=== PATIENT | female | born 1965 | race Caucasian/White ===

== ENCOUNTER 2019-06-29 12:22 | Outpatient (CLI) | payer BC, SELFPAY ==
--- NOTE | 2019-06-29 12:33 | XR_ITS ---
WS: [id number] WRIST RIGHT TECHNIQUE: 3 views of the right wrist CLINICAL INFORMATION: PAIN IN RIGHT WRIST COMPARISON: None. FINDINGS: Normal radiocarpal joint. Scaphoid is normal. Normal lunate. Well-corticated ulna styloid process fra cture is chronic. Distal radius and ulna are otherwise normal in appearance. No acute fractures. XR/XR wrist RT min 3V* [id number] IMPRESSION: No acute fractures
== END 2019-06-29 12:23 | disposition home or self-care (01) ==
LOC: RADWPI 12:27
PROVIDERS: Family Provider Nurse Practitioner Family; PCP Nurse Practitioner Family; Visit Provider Nurse Practitioner Family
DX: M25.531 Pain in right wrist (principal)
CPT/HCPCS: 73110

== ENCOUNTER → 2021-07-06 09:25 | Outpatient (BNVA) | payer OTHER, SELFPAY | PROVIDERS: Family Provider Nurse Practitioner Family; PCP Nurse Practitioner Family; Visit Provider Nurse Practitioner Family | DX: R53.83 Other fatigue (principal); R35.89 Other polyuria; Z13.6 Encounter for screening for cardiovascular disorders; Z13.1 Encounter for screening for diabetes mellitus; E03.9 Hypothyroidism, unspecified | CPT/HCPCS: 80053; 80061; 82607; 82728; 82746; 83550; 84439; 84443; 85025 ==

== ENCOUNTER → 2021-07-07 09:25 | Outpatient (BNVA) | payer OTHER, SELFPAY | PROVIDERS: Family Provider Nurse Practitioner Family; PCP Nurse Practitioner Family; Visit Provider Nurse Practitioner Family | DX: R35.89 Other polyuria (principal); R73.9 Hyperglycemia, unspecified; R53.83 Other fatigue; Z13.6 Encounter for screening for cardiovascular disorders; Z13.1 Encounter for screening for diabetes mellitus | CPT/HCPCS: 83036 ==

== ENCOUNTER 2021-12-27 04:30 | Observation (INO) | payer SELFPAY ==
[2021-12-27] VITALS (53 sets, daily range): BP systolic 154–191; BP diastolic 73–99; PULSE 76–148; RESP 15–39; TEMP 36.4–36.9; O2SAT 90–98; BMI 42.0
--- NOTE | 2021-12-27 04:38 | XRR_ITS ---
PROCEDURE INFORMATION: Exam: XR Chest Exam date and time: 12/27/2021 4:49 AM Age: 56 years old Clinical indication: Cough and shortness of breath; Patient HX: C/O cough with SOB. TECHNIQUE: Imaging protocol: Radiologic exam of the chest. Views: 1 view. COMPARISON: No relevant prior studies available. FINDINGS: Lungs: Interstitial prominence with mild emphysematous changes and probable bibasilar pulmonary scarring. Pleural spaces: No pneumothorax. No pleural effusion. Heart/Mediastinum: The cardiomediastinal silhouette is within normal limits. Bones/joints: Unremarkable. XR/XR chest 1V portable [id number] IMPRESSION: Interstitial prominence with mild emphysematous changes and probable bibasilar pulmonary scarring. However, difficult to exclude bibasilar pneumonia.
--- NOTE | 2021-12-27 04:39 | ED_ITS ---
Documented by User: Angel Gillespie MD 12/27/21 04:51 HPI - SOB/Dyspnea General: Chief Complaint: Shortness of Breath/Dyspnea Stated Complaint: SOB Time Seen by Provider: 12/27/21 04:31 Source: patient Mode of arrival: ambulatory Limitations: no limitations History of Present Illness: HPI Narrative: 56-year-old female has a history of COPD she is a former smoker states that she has had a cough since and increasing shortness of breath especially tonight. She is tachypneic here pulse ox was in the 80s on room air she is requiring 3 L here she has never had to wear oxygen before she states she denies any sick contacts denies any chest pain denies any fevers states her cough is been nonproductive. Associated symptoms: Deny abdominal pain, chest pain, fever(s), nausea or vomiting Review of Systems Const: Denies: fever(s), chills, body aches or change in appetite Eyes: Denies: blurry vision or eye discomfort ENMT: Denies: throat pain or dental pain Card: Denies: chest pain Resp: Reports: dyspnea, non-productive cough and wheezing GI: Denies: abdominal pain, nausea, vomiting or diarrhea : Denies: dysuria Musc: Denies: neck pain or back pain Skin/Breast: Denies: rash Neuro: Denies: headache(s) Psych: Denies: depression Hank/Lymph: Denies: easy bruising All/Imm: Denies: urticaria PFSH ED PFSH: Medical History COPD (chronic obstructive pulmonary disease) Surgical History History of appendectomy History of carpal tunnel surgery Family History Father Diabetes Grandfather Diabetes Mother Chronic kidney disease (CKD), Onset Age: 65 Sister , 56 Cancer Dementia, Onset Age: 70 Social History Smoking and tobacco status: former smoker Alcohol intake: never Household members: spouse Physical Exam Const: COMMON NORMALS: patient oriented x3 GENERAL APPEARANCE: in distress HENMT: COMMON NORMALS: normocephalic and atraumatic HEAD & SCALP: normocephalic and atraumatic Eye: COMMON NORMALS: Equal, round and reactive pupils present and EOMs intact bilaterally PUPIL: Yes Equal, round and reactive pupils present Neck/C-Spine: COMMON NORMALS: full ROM and supple Chest: COMMONS NORMALS: normal inspection of the chest and normal palpation of entire chest wall Resp: EFFORT & INSPECTION: Yes tachypneic, Yes respiratory distress and Yes audible wheezes Cardio: COMMON NORMALS: No murmurs present (Cardio) RATE: tachycardic RHYTHM: abnormal rhythm irregularly irregular GI: COMMON NORMALS: Normal to inspection, nondistended, normoactive bowel sounds present, Soft to palpation, non-tender and no masses PALPATION: Yes Soft to palpation Extremity: COMMON NORMALS: normal to inspection and full ROM Neuro: COMMON NORMALS: patient oriented x3, moves all extremities and no focal motor deficits Psych: COMMON NORMALS: mental status grossly normal, Normal thought process present and cooperative THOUGHT PROCESS: Normal thought process present Skin: COMMON NORMALS: no rashes or lesions noted and no wounds GENERAL SKIN EXAM: no rashes or lesions noted Course Vital Signs: Vital signs: Vital Signs Temperature 98.5 F 12/27/21 04:31 Pulse Rate 85 12/27/21 06:00 Respiratory Rate 20 H 12/27/21 06:00 Blood Pressure 159/76 12/27/21 06:00 Pulse Oximetry 94 12/27/21 06:00 Oxygen Delivery Me thod 12/27/21 06:00 Oxygen Flow Rate 2 12/27/21 06:00 MDM - SOB/Dyspnea Lab Data : 12/27/21 04:45 12/27/21 04:45 Labs/Radiology: Radiology Impressions Chest X-Ray 12/27/21 04:38 IMPRESSION: Interstitial prominence with mild emphysematous changes and probable bibasilar pulmonary scarring. However, difficult to exclude bibasilar pneumonia. Laboratory Results WBC 13.6 10^3/uL (4.0-10.0) H 12/27/21 04:45 RBC 4.38 10^6/uL (4.1-5.3) 12/27/21 04:45 Hgb 13.3 g/dL (11.5-15.3) 12/27/21 04:45 Hct 41.2 % (37.0-47.0) 12/27/21 04:45 MCV 94.1 fl (81-99) 12/27/21 04:45 MCH 30.4 pg (28.0-34.0) 12/27/21 04:45 MCHC 32.3 g/dL (30.0-36.0) 12/27/21 04:45 RDW 13.1 % (12.1-15.1) 12/27/21 04:45 Plt Count 363 10^3/cmm (130-400) 12/27/21 04:45 MPV 10.1 fL (7.4-10.4) 12/27/21 04:45 Neut % (Auto) 64.5 % 12/27/21 04:45 Lymph % (Auto) 22.4 % 12/27/21 04:45 Swain % (Auto) 7.5 % 12/27/21 04:45 Eos % (Auto) 4.5 % 12/27/21 04:45 Baso % (Auto) 0.7 % 12/27/21 04:45 Neut # (Auto) 8.77 10^3/uL (1.8-7.7) H 12/27/21 04:45 Lymph # (Auto) 3.0 10^3/uL (0.8-4.8) 12/27/21 04:45 Swain # (Auto) 1.0 10^3/uL (0.2-0.9) H 12/27/21 04:45 Eos # (Auto) 0.6 10^3/uL (0.0-0.8) 12/27/21 04:45 Baso # (Auto) 0.1 10^3/uL (0.0-0.1) 12/27/21 04:45 Nucleated RBC % (auto) 0 % 12/27/21 04:45 Nucleated RBCs # 0.0 /100WBC 12/27/21 04:45 Sodium 138 mmol/L (136-145) 12/27/21 04:45 Potassium 3.6 mmol/L (3.5-5.1) 12/27/21 04:45 Chloride 104 mmol/L (98-107) 12/27/21 04:45 Carbon Dioxide 23 mmol/L (22-29) 12/27/21 04:45 Anion Gap 14.6 (5-19) 12/27/21 04:45 BUN 11 mg/dL (6-20) 12/27/21 04:45 Creatinine 0.6 mg/dL (0.5-0.9) 12/27/21 04:45 GFR Calculation 103.8 mL/min (90-130) 12/27/21 04:45 Glucose 225 mg/dL (65-115) H 12/27/21 04:45 Calculated Osmolality 292 mOsm/kg (285-295) 12/27/21 04:45 Calcium 9.0 mg/dL (8.5-10.5) 12/27/21 04:45 Total Bilirubin 0.4 mg/dL (0.15-1.2) 12/27/21 04:45 AST 43 U/L (0-32) H 12/27/21 04:45 ALT 43 U/L (0-33) H 12/27/21 04:45 Alkaline Phosphatase 108 U/L (35-105) H 12/27/21 04:45 Troponin T Baseline 23 ng/L (0-10) H 12/27/21 04:53 Troponin T 120 Minute 26.61 ng/L (0-10) H 12/27/21 06:41 Delta Troponin T 3.61 ABS# (0-10) 12/27/21 06:41 NT-Pro-B Natriuret Pep 955 pg/mL (0-125) H 12/27/21 04:45 Total Protein 6.8 g/dL (6.6-8.7) 12/27/21 04:45 Albumin 4.2 g/dL (3.5-5.2) 12/27/21 04:45 Globulin 2.6 g/dL (1.3-4.6) 12/27/21 04:45 Coronavirus 229E (PCR) Not detected (NOT DETECT) 12/27/21 04:41 SARS-CoV-2 (PCR) Not detected (NOT DETECT) 12/27/21 04:41 EKG Data EKG 1: I personally reviewed and interpreted this EKG as follows: EKG Interpretation Date: 12/27/21 EKG interpretation time: 04:48 Interpretation: afib with rvr hr [address] or t wave abnormalities qrs 96 qtc 386 Discharge Plan Discharge Patient Disposition: Placed in Observation Clinical Impression: Community acquired pneumonia, Acute exacerbation of chronic obstructive airways disease Condition: Stable Prescriptions: No Action ipratropium-albuterol 0.5 mg-3 mg(2.5 mg base)/3 mL solution for nebulization 3 ml inhalation QID PRN albuterol 90 mcg/actuation aerosol inhalation citalopram [Celexa] 20 mg tablet 20 mg PO DAILY Qty: 30 0RF Rx Instructions: 1/2 tab daily for 1 week then increase to full tablet. Advair HFA 230-21 mcg/actuation HFA aerosol inhaler 2 puff inhalation BID Qty: 12 3RF Rx Instructions: 340 B if unaffordable. glimepiride 1 mg tablet 1 mg PO DAILY Qty: 30 0RF rosuvastatin 10 mg tablet 10 mg PO DAILY Qty: 90 3RF blood-glucose meter [[employer] Shongal[employer]] Kit 1 ea miscellaneous DAILY Qty: 1 0RF Rx Instructions: [employer] Glucometer Kit and supplies for use. Coding Level of Care Code ED Vp Talent Management for Chg Fwd Exam Comprehensive Documented by User: Jd Coles DO 12/27/21 07:34 HPI - SOB/Dyspnea General: Chief Complaint: Shortness of Breath/Dyspnea Stated Complaint: SOB Time Seen by Provider: 12/27/21 04:31 [facility] ED PFSH: Medical History COPD (chronic obstructive pulmonary disease) Surgical History History of appendectomy History of carpal tunnel surgery Family History Father Diabetes Grandfather Diabetes Mother Chronic kidney disease (CKD), Onset Age: 65 Sister , 56 Cancer Dementia, Onset Age: 70 Social History Smoking and tobacco status: former smoker Alcohol intake: never Household members: spouse Course Vital Signs: Vital signs: Vital Signs Temperature 98.5 F 12/27/21 04:31 Pulse Rate 85 12/27/21 06:00 Respiratory Rate 20 H 12/27/21 06:00 Blood Pressure 159/76 12/27/21 06:00 Pulse Oximetry 94 12/27/21 06:00 Oxygen Delivery Me thod 12/27/21 06:00 Oxygen Flow Rate 2 12/27/21 06:00 MDM - SOB/Dyspnea Medical Decision Making Care assumed at change of shift. Patient does have what appears to be bibasilar pneumonia and exacerbation of her COPD. She had a slight positive shift in her troponin however it was below criteria for intermediate risk by just a few tenths of a point. At 2 L by nasal cannula she is around 90 to 92%. She was tachycardic and hypoxic when she first came in we will increase her to 3 she is holding at 94% and is no longer tachycardic. There is also slight elevation in her liver enzymes she may have some underlying heart failure to although there is no established diagnosis there is no previous echocardiogram and will likely need to be further evaluated on the inpatient side. At this point given her elevated white count hypoxia and shortness of breath we will treat her for pneumonia on an inpatient basis. Discussed with Dr. Hartley will make her observation. Differential Diagnosis Likely acute exacerbation of chronic obstructive airways disease, congestive heart failure and community acquired pneumonia Medical Records I reviewed the patient's medical records. Lab Data I reviewed the patient's lab results. : 12/27/21 04:45 12/27/21 04:45 Labs/Radiology: Radiology Impressions Chest X-Ray 12/27/21 04:38 IMPRESSION: Interstitial prominence with mild emphysematous changes and probable bibasilar pulmonary scarring. However, difficult to exclude bibasilar pneumonia. Laboratory Results WBC 13.6 10^3/uL (4.0-10.0) H 12/27/21 04:45 RBC 4.38 10^6/uL (4.1-5.3) 12/27/21 04:45 Hgb 13.3 g/dL (11.5-15.3) 12/27/21 04:45 Hct 41.2 % (37.0-47.0) 12/27/21 04:45 MCV 94.1 fl (81-99) 12/27/21 04:45 MCH 30.4 pg (28.0-34.0) 12/27/21 04:45 MCHC 32.3 g/dL (30.0-36.0) 12/27/21 04:45 RDW 13.1 % (12.1-15.1) 12/27/21 04:45 Plt Count 363 10^3/cmm (130-400) 12/27/21 04:45 MPV 10.1 fL (7.4-10.4) 12/27/21 04:45 Neut % (Auto) 64.5 % 12/27/21 04:45 Lymph % (Auto) 22.4 % 12/27/21 04:45 Swain % (Auto) 7.5 % 12/27/21 04:45 Eos % (Auto) 4.5 % 12/27/21 04:45 Baso % (Auto) 0.7 % 12/27/21 04:45 Neut # (Auto) 8.77 10^3/uL (1.8-7.7) H 12/27/21 04:45 Lymph # (Auto) 3.0 10^3/uL (0.8-4.8) 12/27/21 04:45 Swain # (Auto) 1.0 10^3/uL (0.2-0.9) H 12/27/21 04:45 Eos # (Auto) 0.6 10^3/uL (0.0-0.8) 12/27/21 04:45 Baso # (Auto) 0.1 10^3/uL (0.0-0.1) 12/27/21 04:45 Nucleated RBC % (auto) 0 % 12/27/21 04:45 Nucleated RBCs # 0.0 /100WBC 12/27/21 04:45 Sodium 138 mmol/L (136-145) 12/27/21 04:45 Potassium 3.6 mmol/L (3.5-5.1) 12/27/21 04:45 Chloride 104 mmol/L (98-107) 12/27/21 04:45 Carbon Dioxide 23 mmol/L (22-29) 12/27/21 04:45 Anion Gap 14.6 (5-19) 12/27/21 04:45 BUN 11 mg/dL (6-20) 12/27/21 04:45 Creatinine 0.6 mg/dL (0.5-0.9) 12/27/21 04:45 GFR Calculation 103.8 mL/min (90-130) 12/27/21 04:45 Glucose 225 mg/dL (65-115) H 12/27/21 04:45 Calculated Osmolality 292 mOsm/kg (285-295) 12/27/21 04:45 Calcium 9.0 mg/dL (8.5-10.5) 12/27/21 04:45 Total Bilirubin 0.4 mg/dL (0.15-1.2) 12/27/21 04:45 AST 43 U/L (0-32) H 12/27/21 04:45 ALT 43 U/L (0-33) H 12/27/21 04:45 Alkaline Phosphatase 108 U/L (35-105) H 12/27/21 04:45 Troponin T Baseline 23 ng/L (0-10) H 12/27/21 04:53 Troponin T 120 Minute 26.61 ng/L (0-10) H 12/27/21 06:41 Delta Troponin T 3.61 ABS# (0-10) 12/27/21 06:41 NT-Pro-B Natriuret Pep 955 pg/mL (0-125) H 12/27/21 04:45 Total Protein 6.8 g/dL (6.6-8.7) 12/27/21 04:45 Albumin 4.2 g/dL (3.5-5.2) 12/27/21 04:45 Globulin 2.6 g/dL (1.3-4.6) 12/27/21 04:45 Coronavirus 229E (PCR) Not detected (NOT DETECT) 12/27/21 04:41 SARS-CoV-2 (PCR) Not detected (NOT DETECT) 12/27/21 04:41 Discharge Plan Discharge Patient Disposition: Placed in Observation Clinical Impression: Community acquired pneumonia, Acute exacerbation of chronic obstructive airways disease Condition: Stable Prescriptions: No Action ipratropium-albuterol 0.5 mg-3 mg(2.5 mg base)/3 mL solution for nebulization 3 ml inhalation QID PRN albuterol 90 mcg/actuation aerosol inhalation citalopram [Celexa] 20 mg tablet 20 mg PO DAILY Qty: 30 0RF Rx Instructions: 1/2 tab daily for 1 week then increase to full tablet. Advair HFA 230-21 mcg/actuation HFA aerosol inhaler 2 puff inhalation BID Qty: 12 3RF Rx Instructions: 340 B if unaffordable. glimepiride 1 mg tablet 1 mg PO DAILY Qty: 30 0RF rosuvastatin 10 mg tablet 10 mg PO DAILY Qty: 90 3RF blood-glucose meter [[employer] Shongaloo] Kit 1 ea miscellaneous DAILY Qty: 1 0RF Rx Instructions: [employer] Glucometer Kit and supplies for use. Coding Level of Care Code ED Vp Talent Management for Chg Fwd Exam Comprehensive
--- NOTE | 2021-12-27 04:48 | ECG_ITS ---
[facility] Test Date: 2021-12-27 Pat Name: Shyla Goldman Department: Room: Gender: Female Tick Inspector: : 1965 Requested By: Angel Gillespie Order Number: [id number] Vincent MD: Eric Hannon M.D. Measurements Intervals [place] Rate: 103 P: [place]: QRS: 50 QRSD: 96 T: 78 QT: 327 QTc: 429 Interpretive Statements sinus rhythm with PACs NONSPECIFIC ST & T-WAVE ABNORMALITY ABNORMAL RHYTHM ECG No previous ECG available for comparison Electronically Signed On 12-28-2021 7:04:37 CDT by Eric Hannon M.D. [email or web address] [email or web address]/[id number]
[2021-12-27 04:53] LABS: Basophils # 0.1 10^3/uL (0.0-0.1); Basophils % 0.7 %; Eosinophils # 0.6 10^3/uL (0.0-0.8); Eosinophils % 4.5 %; Hematocrit 41.2 % (37.0-47.0); Hemoglobin 13.3 g/dL (11.5-15.3); Lymphocytes % 22.4 %; Mean Corpuscular HGB Conc 32.3 g/dL (30.0-36.0); Mean Corpuscular Hemoglobin 30.4 pg (28.0-34.0); Mean Corpuscular Volume 94.1 fl (81-99); Mean Platelet Volume 10.1 fL (7.4-10.4); Monocytes % 7.5 %; Neutrophils # 8.77 10^3/uL (1.8-7.7); Neutrophils % 64.5 %; Nucleated Red Blood Cells % 0 %; Platelet Count 363 10^3/cmm (130-400); Red Blood Count 4.38 10^6/uL (4.1-5.3); Red Cell Distribution Width 13.1 % (12.1-15.1); White Blood Count 13.6 10^3/uL (4.0-10.0)
[2021-12-27] MEDS: ipratropium-albuterol 3 mL Neb INHALATION ×4 (04:56→20:19)
[2021-12-27 05:17] LABS: Troponin(5th) Baseline 23 ng/L (0-10)
[2021-12-27 05:23] LABS: Alanine Aminotransferase 43 U/L (0-33); Albumin Level 4.2 g/dL (3.5-5.2); Alkaline Phosphatase 108 U/L (35-105); Anion Gap 14.6 (5-19); Aspartate Amino Transferase 43 U/L (0-32); Blood Urea Nitrogen 11 mg/dL (6-20); Carbon Dioxide 23 mmol/L (22-29); Chloride 104 mmol/L (98-107); Globulin 2.6 g/dL (1.3-4.6); Glomerular Filtration Rate 103.8 mL/min (90-130); Glucose 225 mg/dL (65-115); NT Pro B Type Natriuretic Pept 955 pg/mL (0-125); Osmolality Calculated 292 mOsm/kg (285-295); Potassium 3.6 mmol/L (3.5-5.1); Sodium 138 mmol/L (136-145); Total Bilirubin 0.4 mg/dL (0.15-1.2); Total Protein 6.8 g/dL (6.6-8.7)
[2021-12-27 06:28] LABS: Adenovirus Not Detected (NOT DETECT); Chlamydia Pneumoniae Not Detected (NOT DETECT); Coronavirus 229E,HKU1,NL63,OC4 Not Detected (NOT DETECT); Human Metapneumovirus Not Detected (NOT DETECT); Human Rhinovirus/Enterovirus Not Detected (NOT DETECT); Influenza A Not Detected (NOT DETECT); Influenza A H1 Not Detected (NOT DETECT); Influenza A H1-2009 Not Detected (NOT DETECT); Influenza A H3 Not Detected (NOT DETECT); Influenza B Not Detected (NOT DETECT); Mycoplasma Pneumoniae Not Detected (NOT DETECT); Parainfluenza Virus Type 1 Not Detected (NOT DETECT); Parainfluenza Virus Type 2 Not Detected (NOT DETECT); Parainfluenza Virus Type 3 Not Detected (NOT DETECT); Parainfluenza Virus Type 4 Not Detected (NOT DETECT); Respiratory Syncytial Virus A Not Detected (NOT DETECT); Respiratory Syncytial Virus B Not Detected (NOT DETECT); SARS-COV-2 Not Detected (NOT DETECT)
--- NOTE | 2021-12-27 06:32 | ECG_ITS ---
[facility] Test Date: 2021-12-27 Pat Name: Shyla Goldman Department: Room: Gender: Female Outpatient Receptionist: : 1965 Requested By: Angel Gillespie Order Number: [id number] Vincent MD: Eric Hannon M.D. Measurements Intervals [place] Rate: 90 P: 60 [place]: 138 QRS: 48 QRSD: 97 T: 77 QT: 385 QTc: 472 Interpretive Statements SINUS RHYTHM WITH FREQUENT SUPRAVENTRICULAR PREMATURE COMPLEXES POSSIBLE LEFT ATRIAL ENLARGEMENT [-0.1mV P-WAVE IN V1/V2] NONSPECIFIC T-WAVE ABNORMALITY ABNORMAL RHYTHM ECG Compared to ECG 12/27/2021 04:48:41 T-wave abnormality still present Electronically Signed On 12-28-2021 7:12:07 CDT by Eric Hannon M.D. [id number]
[2021-12-27 07:07] LABS: Troponin 5 2HR 26.61 ng/L (0-10)
[2021-12-27 07:14] LABS: Troponin 5 2HR Delta 3.61 ABS# (0-10)
[2021-12-27] MEDS: levofloxacin-dextrose 5 % 750 MG/150 ML PREMIX 100 MG IV (07:27)
--- NOTE | 2021-12-27 07:34 | USCV_ITS ---
Shyla Goldman Age: 56 Gender: F : 1965 Exam Date: 12/27/2021 09:33 Ordering Phys: Chapin Reed MD Technologist: GEOFF [place] [facility] [place]ication: ELEVATED TROP BP: 159 / 76 HR: 79 Rhythm: Sinus Technical Quality: Adequate MEASUREMENTS (Male / Female) Normal Values 2D ECHO LVOT Diameter 2.0 cm LV Ejection Fraction MOD 2C 34.9 % LV Ejection Fraction 2C AL 36.7 % LA Diameter 3.5 cm LA Width 3.6 cm LA Height 4.6 cm RA Width 3.5 cm RA Height 4.3 cm Aorta at Sinotubular Diameter 2.5 cm IVC Diameter 1.5 cm M-MODE Aortic Annulus Diameter 2.9 cm LA Ao Ratio MM 1.2 MV E Point Septal Separation 1.8 cm DOPPLER AV Peak Velocity 174.3 cm/s LVOT Peak Velocity 104.0 cm/s AV Area Cont Eq vti 2.1 cm squared AV Area Cont Eq pk 1.9 cm squared MV Peak Velocity 114.0 cm/s MV Area PHT 3.7 cm squared Mitral E to A Ratio 1.1 MV E' Velocity 61.0 cm/s Mitral E to MV E' Ratio 12.3 Mitral E to LV E' Lateral Ratio 10.0 Mitral E to LV E' Septal Ratio 16.0 TR Peak Velocity 277.3 cm/s TR Peak Gradient 30.7 mmHg TR Mean Velocity 240.0 cm/s TR Mean Gradient 24.7 mmHg TR Velocity Time Integral 72.0 cm TV Peak E Velocity 45.0 cm/s Right Atrial Pressure 8.0 mmHg Pulmonary Artery Systolic Pressu 38.7 mmHg PV Peak Velocity 84.0 cm/s RV Acceleration Time 0.1 s RV Ejection Time 0.3 s RV AcT/ET 0.4 FINDINGS Left Ventricle Normal left ventricular size and wall thickness. Moderately decreased left ventricular systolic function. Left ventricular ejection fraction is estimated at 30-35 %. There seems to be global hypokinesis more pronounced in basal to mid anterior and anterolateral lorenz. Normal diastolic function. Right Ventricle Normal right ventricular size and systolic function. Right ventricular systolic pressure 33 mmHg. Right Atrium Normal right atrial size. Left Atrium Mildly increased left atrial size. Mitral Valve Mild mitral annular calcification. Structurally normal mitral valve. No mitral valve stenosis. Trace mitral valve regurgitation. Aortic Valve Structurally normal trileaflet aortic valve. No aortic valve stenosis. No aortic valve regurgitation. Tricuspid Valve Structurally normal tricuspid valve. Trace tricuspid valve regurgitation. Pulmonic Valve Structurally normal pulmonic valve. No pulmonary valve stenosis. Trace pulmonary valve regurgitation. Pericardium No pericardial effusion. Aorta Normal size aortic root and proximal ascending aorta. IVC Normal sized inferior vena cava. CONCLUSIONS 1. Normal left ventricular size and wall thickness. Moderately decreased left ventricular systolic function. Left ventricular ejection fraction is estimated at 30-35 %. There seems to be global hypokinesis more pronounced in basal to mid anterior and anterolateral lorenz. Normal diastolic function. 2. Normal right ventricular size and systolic function. 3. Pulmonary artery pressure estimated at 33 mmHg. 4. There are no prior similar studies to compare. Nargis Munguia MD (Electronically Signed) Final Date: 27 December 2021 12:41 S
[2021-12-27 08:16] LABS: Thyroid Stimulating Hormone 3.88 uIU/mL (0.27-4.20)
[2021-12-27 08:20] LABS: Hepatitis A Antibody IgM Non-Reactive (Nonreactive); Hepatitis B Core IgM Reactive (Nonreactive); Hepatitis B Surface Antigen Non-Reactive (Nonreactive); Hepatitis C Virus Antibody Reactive (Nonreactive)
--- NOTE | 2021-12-27 08:32 | PM.HP ---
Providers/Chief Complaint Admitting Physician: Chapin Reed MD Chief Complaint: SOB History of Present Illness Shyla Goldman is a 56 year old female presenting to the hospital with shortness of breath, wheezing, and nonproductive cough. Symptoms have been waxing and waning for 3 weeks but significantly worse in the last week. She has not had any fever. She denies any chest discomfort currently. She states occasionally she will get some brief sharp discomfort in her chest. No blood in her sputum. Reports she has known COPD, but not on steroid inhalation anymore she could not afford it. Frequently uses albuterol. Does not smoke anymore. Still uses some nicotine lozenges. In the emergency department she has received some IV Levaquin, nebulized treatment, and some steroids. She reports the breathing treatment helped greatly and she feels better. She also required oxygen and is currently on 2 L. Review of Systems General: Reports: 10 or more systems reviewed and unremarkable except in HPI and below Const: Denies: fever(s) or chills Eyes: Denies: change in vision ENMT: Denies: throat pain Card: Reports: chest pain Resp: Reports: dyspnea, non-productive cough and wheezing GI: Denies: abdominal pain : Denies: flank pain Musc: Denies: neck pain Skin/Breast: Denies: rash Neuro: Denies: headache(s) Psych: Denies: anxiety Endo: Denies: polyuria Hank/Lymph: Denies: easy bruising All/Imm: Denies: urticaria Medications/Allergies Home Medications Medication Instructions Recorded Confirmed Last Taken Type ipratropium 0.5 mg-albuterol 3 mg 3 ml inhalation QID PRN Shortness 03/13/21 12/27/21 Unknown History (2.5 mg base)/3 mL nebulization Of Breath soln albuterol sulfate 90 mcg/actuation 2 puff inhalation QID PRN 12/27/21 12/27/21 Unknown History aerosol inhaler Shortness Of Breath Or Wheezing cyanocobalamin (vitamin B-12) 100 100 mcg PO DAILY 12/27/21 12/27/21 12/26/21 History mcg tablet (Vitamin B-12) ergocalciferol (vitamin D2) 10 mcg 10 mcg PO DAILY 12/27/21 12/27/21 12/26/21 History (400 unit) tablet guaifenesin 600 mg tablet, 600 mg PO Q12H PRN Congestion 12/27/21 12/27/21 Unknown History extended release 12 hr (Mucinex) ibuprofen 200 mg tablet 200 mg PO Q6H PRN Pain 12/27/21 12/27/21 Unknown History vitamin C 500 mg-quercetin 250 1 cap PO DAILY 12/27/21 12/27/21 12/26/21 History mg-bioflavonoids, citrus 33 mg capsule (Quercetin Complex) zinc acetate 50 mg (zinc) capsule 50 mg PO DAILY 12/27/21 12/27/21 12/26/21 History Allergies Allergy/AdvReac Type Severity Reaction Status Date / Time No Known Allergies Allergy Verified 12/27/21 07:47 PFSH Acute PFSH: Medical History (Updated 12/27/21 @ 08:40 by Chapin Reed MD) COPD (chronic obstructive pulmonary disease) Depression Diabetes mellitus type 2 in obese Surgical History History of appendectomy History of carpal tunnel surgery Family History Father Diabetes Grandfather Diabetes Mother Chronic kidney disease (CKD), Onset Age: 65 Sister , 56 Cancer Dementia, Onset Age: 70 Social History Smoking and tobacco status: former smoker Alcohol intake: never Household members: spouse Vitals/I&O/Wt Last Vital Signs Temp 98.5 F 12/27/21 04:31 Pulse 86 12/27/21 07:32 Resp 20 H 12/27/21 06:00 BP 159/76 12/27/21 06:00 Pulse Ox 93 12/27/21 07:32 O2 Del Method 12/27/21 07:32 O2 Flow Rate 2 12/27/21 07:32 Weight last 48 hrs Weight 97.522 kg Physical Exam Narrative: General exam is a female, no distress currently HEENT: Atraumatic and normocephalic. Pupils equally round. Oropharynx clear. Neck is supple no lymphadenopathy or thyromegaly Cardiovascular regular rate and rhythm without murmur, heart sounds distant Lungs diminished breath sounds at the bases. No crackles. Few expiratory wheezes. Abdomen is soft nontender positive bowel sounds. No obvious organomegaly exam was deferred Extremities no cyanosis clubbing or edema, cap refill brisk Skin no rash Neuro no obvious focal deficits. Data : 12/27/21 04:45 12/27/21 04:45 Other Labs: EKG demonstrates slight tachycardia, occasional PAC, normal axis and nonspecific ST-T wave changes Chest x-ray demonstrates some emphysematous change, possible bibasilar pneumonia Calcium 9.0 LFTs slightly high with AST of 43, ALT of 43, alk phos of 108. Troponin baseline 23 with repeat of 26. BNP 955. TSH and hepatitis panel have been ordered. A&P Assessment and plan (1) Community acquired pneumonia: Patient presents with community-acquired pneumonia requiring oxygen, with elevated white blood cell count. No fevers been noted. Bibasilar infiltrate on x-ray. Observation Wean oxygen as tolerated Rocephin, azithromycin Sputum culture. (2) Acute exacerbation of chronic obstructive airways disease: She received IV steroids in the emergency department Prednisone 40 mg daily Pulmonary toilet every 4 hours with albuterol and Atrovent Initiate budesonide twice daily (3) Transaminitis: Check hepatitis panel (4) Elevated troponin: Elevated BNP as well but no overt signs of congestive heart failure such as crackles, increased JVP, or peripheral edema. This may be secondary to heart strain from her hypoxia and COPD exacerbation/pneumonia Check echocardiogram Consider outpatient nuclear stress testing. (5) Diabetes mellitus type 2 in obese: Sliding scale insulin will be initiated Metformin should be initiated at discharge Consistent carb diet Plan Other medical problems as outlined in past medical history Full code Lovenox for DVT prophylaxis Attestations Medical Necessity Statement*: Will need less than 2 midnight stay for evaluation and treatment of COPD exacerbation and pneumonia. Coding Level of Care Code Acute Rehab Physician for Chg Fwd Diagnoses Community acquired pneumonia J18.9 Acute exacerbation of chronic obstructive airways disease J44.1 Transaminitis R74.01 Elevated troponin R77.8 Diabetes mellitus type 2 in obese E11.69; E66.9
[2021-12-27] MEDS: perflutren protein-a microsphr 0.22 mg/mL SDV 3 mL IV (10:03)
[2021-12-27] MEDS: FUROsemide 10 mg/mL SDV 2mL 20 MG IVP (10:11)
[2021-12-27 10:29] LABS: Protein Urine Neg (Negative); Specific Gravity, Urine 1.015 (1.005-1.030); Urine Appearance Clear (CLEAR); Urine Color Yellow (Yellow); pH Urine 5 (5-7)
[2021-12-27 10:30] LABS: Bilirubin Urine Neg (Negative); Blood Urine Neg (Negative); Glucose Urine UA 4+ (Normal); Ketones Urine 1+ (Negative); Leukocyte Esterase Urine Negative (Negative); Nitrate Urine Positive (Negative); Urobilinogen Urine Norm (Negative)
[2021-12-27 10:38] LABS: Add Urine Culture? Yes; Bacteria Urine 3+ /hpf; Squamous Epithelial Cell Urine 0-4 /hpf (0-5)
--- NOTE | 2021-12-27 10:38 | ECG_ITS ---
[facility] Test Date: 2021-12-27 Pat Name: Shyla Goldman Department: Room: 254 Gender: Female Manager Of Finance: : 1965 Requested By: Angel Gillespie Order Number: [id number] Reading MD: Eric Hannon M.D. Measurements Intervals [place] Rate: 79 P: 61 AK: 143 QRS: 46 QRSD: 95 T: 66 QT: 428 QTc: 493 Interpretive Statements SINUS RHYTHM POSSIBLE LEFT ATRIAL ENLARGEMENT [-0.1mV P-WAVE IN V1/V2] NONSPECIFIC T-WAVE ABNORMALITY Compared to ECG 12/27/2021 06:32:48 No significant changes Electronically Signed On 12-28-2021 7:12:49 CDT by Eric Hannon M.D. [id number]
[2021-12-27 11:22] LABS: Troponin 5 6HR 25.35 ng/L (0-10)
[2021-12-27 11:23] LABS: Troponin 5 6HR Delta 2.35 ng/L (0-12)
[2021-12-27 13:38] LABS: Glucose Point of Care 352 mg/dL (70-110)
[2021-12-27] MEDS: budesonide 0.5 mg/2 mL Neb INHALATION ×2 (13:41→20:19)
[2021-12-27] MEDS: aspirin 325 mg EC Tablet PO (13:54)
[2021-12-27] MEDS: predniSONE 20 mg Tablet 40 MG PO (13:54)
[2021-12-27] MEDS: enoxaparin 40 mg/0.4 mL Syringe SUBCUT (13:56)
[2021-12-27] MEDS: cefTRIAXone 1,000 MG in sodium chloride 0.9% (plus) 50 ML 100 MG IV (13:58)
[2021-12-27] MEDS: azithromycin 500 MG in sodium chloride 0.9% 250 ML 250 MG IV (14:05)
[2021-12-27] MEDS: losartan 50 mg Tablet 25 MG PO (14:06)
[2021-12-27 14:15] LABS: Procalcitonin 0.04 ng/mL (0-0.5)
--- NOTE | 2021-12-27 14:18 | P.CONIM_ITS ---
Providers/Reason For Consult Consulting Physician/Specialty*: Dr. Munguia, cardiology Reason for Consult*: Newly diagnosed cardiomyopathy Attending Physician: Chapin Reed MD History of Present Illness History of Present Illness Shyla Goldman is a 56 year old female with PMHx of COPD, former smoker and whiskey drinker (quit in 2018), type 2 DM and obesity (BMI-42) presented with shortness of breath, wheezing, and productive cough with whitish to yellowish phlegm for past 2-3 weeks.? No fever, blood in her sputum.? She got some IV Levaquin, breathing treatment and steroids.?She had some chest discomfort after stress that did not last long. She had echocardiogram that showed LVEF 30-35% with global hypokinesis more pronounced in basal to mid anterior and anterolateral lorenz. She complains of SOB but denies any CP. Review of Systems Const: Denies: fatigue Eyes: Denies: change in vision ENMT: Denies: throat pain, bleeding gums or epistaxis Card: Denies: chest pain, palpitations, irregular heart rhythm, edema, swelling of feet/ankles, lightheadedness, syncope, pre-syncope, dyspnea on exertion or orthopnea Resp: Reports: dyspnea and productive cough; Denies: non-productive cough GI: Denies: abdominal pain, nausea, vomiting, hematemesis, diarrhea, constipation or hematochezia : Denies: dysuria or hematuria Musc: Denies: back pain, extremity swelling, joint pain or muscle weakness Skin/Breast: Denies: rash Neuro: Denies: dizziness Psych: Denies: anxiety or depression Endo: Denies: tired all the time Hank/Lymph: Denies: easy bruising or easy bleeding Medications/Allergies Home Medications Medication Instructions Recorded Confirmed Last Taken Type ipratropium 0.5 mg-albuterol 3 mg 3 ml inhalation QID PRN Shortness 03/13/21 12/27/21 Unknown History (2.5 mg base)/3 mL nebulization Of Breath soln albuterol sulfate 90 mcg/actuation 2 puff inhalation QID PRN 12/27/21 12/27/21 Unknown History aerosol inhaler Shortness Of Breath Or Wheezing cyanocobalamin (vitamin B-12) 100 100 mcg PO DAILY 12/27/21 12/27/21 12/26/21 History mcg tablet (Vitamin B-12) ergocalciferol (vitamin D2) 10 mcg 10 mcg PO DAILY 12/27/21 12/27/21 12/26/21 History (400 unit) tablet guaifenesin 600 mg tablet, 600 mg PO Q12H PRN Congestion 12/27/21 12/27/21 Unknown History extended release 12 hr (Mucinex) ibuprofen 200 mg tablet 200 mg PO Q6H PRN Pain 12/27/21 12/27/21 Unknown History vitamin C 500 mg-quercetin 250 1 cap PO DAILY 12/27/21 12/27/21 12/26/21 History mg-bioflavonoids, citrus 33 mg capsule (Quercetin Complex) zinc acetate 50 mg (zinc) capsule 50 mg PO DAILY 12/27/21 12/27/21 12/26/21 History Allergies Allergy/AdvReac Type Severity Reaction Status Date / Time No Known Allergies Allergy Verified 12/27/21 07:47 Current Medications Generic Name Dose Route Start Last Admin Trade Name Freq PRN Reason Stop Dose Admin Albuterol/Ipratropium 3 ml 12/27/21 12:32 12/27/21 13:41 Ipratropium-Albuterol 3 Ml Neb INHALATION 3 ml Q4H NEETU Administration Aspirin 325 mg 12/27/21 13:25 12/27/21 13:54 Aspirin 325 Mg Ec Tablet PO 325 mg DAILY NEETU Administration Budesonide 0.5 mg 12/27/21 12:45 12/27/21 13:41 Budesonide 0.5 Mg/2 Ml Neb INHALATION 0.5 mg BID.RESPIRATORY NEETU Administration Enoxaparin Sodium 40 mg 12/27/21 13:00 12/27/21 13:56 Enoxaparin 40 Mg/0.4 Ml Syringe SUBCUT 40 mg Q24H NEETU Administration Azithromycin 500 mg/ Sodium 250 mls @ 250 mls/hr 12/27/21 13:00 12/27/21 14:05 Chloride IV 250 mls/hr Q24H NEETU Administration Protocol Ceftriaxone Sodium 1,000 mg/ 50 mls @ 100 mls/hr 12/27/21 13:00 12/27/21 13:58 Sodium Chloride IV 100 mls/hr Q24H NEETU Administration Protocol Insulin Human Lispro 0 unit 12/27/21 12:32 12/27/21 14:12 Insulin Lispro 100 Unit/1 Ml SUBCUT Not Given WM&BEDTIME NEETU Protocol Losartan Potassium 25 mg 12/27/21 13:25 12/27/21 14:06 Losartan 50 Mg Tablet PO 25 mg DAILY NEETU Administration Prednisone 40 mg 12/27/21 13:00 12/27/21 13:54 Prednisone 20 Mg Tablet PO 40 mg DAILY NEETU Administration PFSH Acute PFSH: Medical History COPD (chronic obstructive pulmonary disease) Depression Diabetes mellitus type 2 in obese Surgical History History of appendectomy History of carpal tunnel surgery Family History Father Diabetes Grandfather Diabetes Mother Chronic kidney disease (CKD), Onset Age: 65 Sister , 56 Cancer Dementia, Onset Age: 70 Social History Smoking and tobacco status: former smoker Alcohol intake: never Household members: spouse Vitals/I&O/Wt Last Vital Signs Temp 98.2 F 12/27/21 12:32 Pulse 91 12/27/21 13:51 Resp 16 12/27/21 13:51 BP 164/86 12/27/21 14:06 Pulse Ox 94 12/27/21 13:51 O2 Del Method 12/27/21 13:51 O2 Flow Rate 2 12/27/21 07:32 12/26/21 12/27/21 12/27/21 22:59 06:59 14:59 Intake Total 750 / 750 Balance 750 / 750 Weight last 48 hrs Weight 215 lb Physical Exam Narrative: GENERAL: obese woman sitting in bed in no acute distress HEENT: Extraocular movement intact. No pallor or icterus. NECK: central trachea, No JVD, No carotid bruit. CARDIOVASCULAR SYSTEM: S1-S2 regular. No S3 or S4 present. No murmur rubs or gallops. RESPIRATORY SYSTEM: Chest clear to auscultation. No wheezes rhonchi or rubs heard. No use of accessory muscles. ABDOMEN: Soft, nontender and nondistended. Normal bowel sounds present. EXTREMITIES: No cyanosis or edema. No signs of chronic venous insufficiency. CRANE CHASER: Patient is alert oriented ?3. No focal neurological deficits. SKIN: Normal turgor and temperature. PSYCH: Normal insight and judgment. Data : 12/27/21 04:45 12/27/21 04:45 Other data: TTE (12/27/21) CONCLUSIONS ?1. Normal left ventricular size and wall thickness. Moderately ?decreased left ventricular systolic function.? Left ventricular ?ejection fraction is estimated at 30-35 %.? There seems to be ?global hypokinesis more pronounced in basal to mid anterior and ?anterolateral lorenz.? Normal diastolic function. ?2. Normal right ventricular size and systolic function. ?3. Pulmonary artery pressure estimated at 33 mmHg. ?4. There are no prior similar studies to compare. A&P Assessment and plan (1) Cardiomyopathy: EKG with sinus rhythm, possible left atrial enlargement. non specific T wave abnormality. -troponins flat -started on losratan. -will need C. She is worried about costs as she has no insurance. Risks and benefits were discussed with the patients. Possible complications including risk of heart attack stroke and , coronary perforation, arrhythmia, cardiac tamponade in urgent CABG were discussed with the patient as well. -will talk to clinical social work aide tomorrow. Decision for cath later in stay/outpatient based on that. (2) Diabetes mellitus type 2 in obese: (3) Transaminitis: Hep B Core IgM Ab reactive, Hep C antibody reactive HCV RNA pending (4) COPD (chronic obstructive pulmonary disease): Qualifiers: COPD type: chronic bronchitis Chronic bronchitis type: simple Qualified Code(s): J41.0 - Simple chronic bronchitis Plan Former smoker Obesity Coding Level of Care Code Acute Marketing Professional for [facility] Fwd Diagnoses Cardiomyopathy I42.9 Diabetes mellitus type 2 in obese E11.69; E66.9 Transaminitis R74.01 COPD (chronic obstructive pulmonary disease) J41.0 COPD type: chronic bronchitis Chronic bronchitis type: simple
[2021-12-27] MEDS: ibuprofen 600 mg Tablet PO (14:43)
[2021-12-27 17:03] LABS: Glucose Point of Care 276 mg/dL (70-110)
[2021-12-27] MEDS: insulin lispro 100 unit/1 mL SUBCUT ×2 (17:45→21:47)
[2021-12-27] MEDS: atorvastatin 40 mg Tablet 20 MG PO (20:44)
[2021-12-27 21:19] LABS: Glucose Point of Care 359 mg/dL (70-110)
--- NOTE | 2021-12-27 23:31 | ECG_ITS ---
[facility] Test Date: 2021-12-27 Pat Name: Shyla Goldman Department: Room: 254 Gender: Female Mechanic: : 1965 Requested By: Ab Belle Order Number: [id number] Reading MD: Eric Hannon M.D. Measurements Intervals [place] Rate: 140 P: PA: QRS: 52 QRSD: 93 T: 61 QT: 329 QTc: 503 Interpretive Statements ATRIAL FIBRILLATION WITH RAPID VENTRICULAR RESPONSE NONSPECIFIC ST & T-WAVE ABNORMALITY ABNORMAL RHYTHM ECG Compared to ECG 12/27/2021 11:13:06 Sinus rhythm no longer present T-wave abnormality still present Electronically Signed On 12-28-2021 7:15:11 CDT by Eric Hannon M.D. [id number]
[2021-12-27] MEDS: potassium chloride ER 20 mEq Tablet PO (23:53)
[2021-12-27] MEDS: metoprolol tartrate 1 mg/1 mL SDV 5 mL 2.5 MG IVP (23:54)
[2021-12-28] VITALS (21 sets, daily range): BP systolic 110–148; BP diastolic 60–89; PULSE 66–134; RESP 12–18; TEMP 36.3–36.9; O2SAT 91–97
[2021-12-28] MEDS: ipratropium-albuterol 3 mL Neb INHALATION ×7 (00:22→23:46)
[2021-12-28 00:31] LABS: Magnesium 1.6 mg/dL (1.7-2.3)
[2021-12-28] MEDS: metoprolol tartrate 1 mg/1 mL SDV 5 mL 2.5 MG IVP (01:03)
[2021-12-28] MEDS: metoprolol tartrate 25 mg Tablet PO ×2 (01:03→08:57)
[2021-12-28] MEDS: magnesium sulfate premix 2 GM/50 ML PIGGYBACK IV (01:05)
[2021-12-28 04:31] LABS: Basophils % 0.3 %; Eosinophils % 0.1 %; Hematocrit 38.1 % (37.0-47.0); Hemoglobin 12.4 g/dL (11.5-15.3); Lymphocytes # 1.9 10^3/uL (0.8-4.8); Lymphocytes % 14.1 %; Mean Corpuscular HGB Conc 32.5 g/dL (30.0-36.0); Mean Corpuscular Hemoglobin 30.8 pg (28.0-34.0); Mean Corpuscular Volume 94.5 fl (81-99); Mean Platelet Volume 10.2 fL (7.4-10.4); Monocytes # 1.3 10^3/uL (0.2-0.9); Monocytes % 9.5 %; Neutrophils # 10.04 10^3/uL (1.8-7.7); Neutrophils % 75.5 %; Nucleated Red Blood Cells % 0 %; Platelet Count 408 10^3/cmm (130-400); Red Blood Count 4.03 10^6/uL (4.1-5.3); Red Cell Distribution Width 13.2 % (12.1-15.1); White Blood Count 13.3 10^3/uL (4.0-10.0)
[2021-12-28 04:52] LABS: Alanine Aminotransferase 29 U/L (0-33); Albumin Level 3.7 g/dL (3.5-5.2); Alkaline Phosphatase 97 U/L (35-105); Anion Gap 14.4 (5-19); Aspartate Amino Transferase 22 U/L (0-32); Blood Urea Nitrogen 14 mg/dL (6-20); Calcium 8.8 mg/dL (8.5-10.5); Carbon Dioxide 24 mmol/L (22-29); Chloride 101 mmol/L (98-107); Chol HDL Ratio 2.56 mg/dL (0.0-4.40); Cholesterol 207 mg/dL (0-200); Creatinine Clr Calc Pharmacy 133.0781; Globulin 3.1 g/dL (1.3-4.6); Glomerular Filtration Rate 128.1 mL/min (90-130); Glucose 228 mg/dL (65-115); HDL Cholesterol 81 mg/dL (60-100); LDL Cholesterol Calculated 109 mg/dL (50-129); LDL HDL Ratio 1.35 RATIO (0.00-3.22); Magnesium 2.3 mg/dL (1.7-2.3); Osmolality Calculated 288 mOsm/kg (285-295); Potassium 4.4 mmol/L (3.5-5.1); Sodium 135 mmol/L (136-145); Total Bilirubin 0.3 mg/dL (0.15-1.2); Total Protein 6.8 g/dL (6.6-8.7); Triglycerides 83 mg/dL (0-150)
[2021-12-28 06:59] LABS: Glucose Point of Care 209 mg/dL (70-110)
[2021-12-28] MEDS: budesonide 0.5 mg/2 mL Neb INHALATION ×2 (08:29→20:48)
[2021-12-28] MEDS: aspirin 325 mg EC Tablet PO (08:55)
[2021-12-28] MEDS: losartan 50 mg Tablet 25 MG PO ×2 (08:55→10:35)
[2021-12-28] MEDS: insulin lispro 100 unit/1 mL SUBCUT ×4 (08:57→20:55)
[2021-12-28] MEDS: predniSONE 20 mg Tablet 40 MG PO (08:57)
--- NOTE | 2021-12-28 09:37 | PM.PN ---
Subjective Subjective: went into atrial fibrillation last night and then converted to SR after metoprolol Medications: Reviewed: Yes Vitals/I&O/Wt Last Vital Signs Temp 97.6 F 12/28/21 07:54 Pulse 70 12/28/21 08:25 Resp 16 12/28/21 08:25 BP 138/85 12/28/21 08:55 Pulse Ox 95 12/28/21 08:25 O2 Del Method 12/28/21 08:25 O2 Flow Rate 2 12/28/21 07:45 12/27/21 12/28/21 12/28/21 22:59 06:59 14:59 Intake Total 610 / 1410 50 / 1460 Balance 610 / 1410 50 / 1460 Weight last 48 hrs Weight 215 lb Weight 215 lb Physical Exam Narrative: GENERAL: obese woman sitting in bed in no acute distress HEENT: Extraocular movement intact. No pallor or icterus. NECK: central trachea, No JVD, No carotid bruit. CARDIOVASCULAR SYSTEM: S1-S2 regular. No S3 or S4 present. No murmur rubs or gallops. RESPIRATORY SYSTEM: Chest clear to auscultation. No wheezes rhonchi or rubs heard. No use of accessory muscles. ABDOMEN: Soft, nontender and nondistended. Normal bowel sounds present. EXTREMITIES: No cyanosis or edema. No signs of chronic venous insufficiency. BISQUE WARE DIPPER: Patient is alert oriented ?3. No focal neurological deficits. SKIN: Normal turgor and temperature. PSYCH: Normal insight and judgment. Data : 12/28/21 04:25 12/28/21 04:25 A&P Assessment and plan (1) Cardiomyopathy: EKG with sinus rhythm, possible left atrial enlargement. non specific T wave abnormality. -troponins flat -started on losratan. -will need LHC. Risks and benefits were discussed with the patients. Possible complications including risk of heart attack stroke and , coronary perforation, arrhythmia, cardiac tamponade in urgent CABG were discussed with the patient as well. -Plan for cath tomorrow (2) Atrial fibrillation: [id number]= 3/9, 1 for HTN, 1 for female sex and 1 for DM-2. -continue metoprolol -start on Eliquis after LHC (3) Diabetes mellitus type 2 in obese: (4) Transaminitis: Hep B Core IgM Ab reactive, Hep B surface antigen negative; Hep C antibody reactive HCV RNA pending (5) COPD (chronic obstructive pulmonary disease): Qualifiers: COPD type: chronic bronchitis Chronic bronchitis type: simple Qualified Code(s): J41.0 - Simple chronic bronchitis Plan Former smoker Obesity Attestations Medical Necessity Statement*: needs hospital stay for cardiomyopathy Coding Level of Care Code Acute Mold Repair Technician for [facility] Fwd Diagnoses Cardiomyopathy I42.9 Atrial fibrillation I48.91 Diabetes mellitus type 2 in obese E11.69; E66.9 Transaminitis R74.01 COPD (chronic obstructive pulmonary disease) J41.0 COPD type: chronic bronchitis Chronic bronchitis type: simple
--- NOTE | 2021-12-28 10:32 | PC.CHAP ---
Pastoral Care Encounter/Spiritual Assessment Type of Contact [] Declined wood room hand visit [] Patient/Family/Request visit [] Outpatient visit [] Follow-up visit [] Physician referral [] Code/Alert [x] Routine visit [] Staff referral [] Actively dying [] Patient sleeping [] Family support [] [] Out of room [] Palliative care [] [x] Receiving care in room [] Pre-surgical visit [] Trauma [] Long length of stay [] ICU visit [] Other: Relational/Emotional Strength [x] Patient feels connected with others/family/visitors/staff [] Distress [] Loneliness/isolation [] Abandonment Spirituality of Patient [x] Person of Bianca [] Attends Religious of their Bianca [] Believes in Prayer [] Reads Bible or Mandaen materials [] There are Spiritual issues to be addressed Senior Court Office Assistant Interventions [x] Prayer [x] Active listening [x] Non-anxious presence [x] Spiritual/emotional support [] Crisis/trauma care [x] Spiritual counseling [] Bereavement support [] Provided bereavement packet [] Provided Bible/devotional materials [] Provided toy/stuffed animal, coloring book to patient or family member [] Provided Communion [] Anointing/[place] [] Salvation [x] Completed spiritual assessment [] Other: Impact on Illness or Injury [] Angry [] Fearful [] Anxious [] Often cries [] Exhaustion [] Unable to work [] Unable to attend jain [] Unable to walk/stand [] Unable to read [] Unable to drive [] Unable to eat/drink [] Unable to sleep [] Unable to be with family [] Patient intubated [] Other: Summary daeling punoma some problems breating has a good attitude hoping out come well be good going home soon Time spent with patient 10 mins
[2021-12-28 11:34] LABS: Glucose Point of Care 321 mg/dL (70-110)
[2021-12-28] MEDS: cefTRIAXone 1,000 MG in sodium chloride 0.9% (plus) 50 ML 100 MG IV (12:31)
[2021-12-28] MEDS: enoxaparin 40 mg/0.4 mL Syringe SUBCUT (12:32)
[2021-12-28] MEDS: azithromycin 500 MG in sodium chloride 0.9% 250 ML 250 MG IV (14:02)
--- NOTE | 2021-12-28 14:15 | PM.PN ---
Subjective Subjective: I visited with the patient this morning as well as multiple times this afternoon. Reports she had significant palpitations at night. Refrigeration Brazer/Solderer was notified that she was having episodes of A. fib with RVR and she received metoprolol IV and was started on p.o. metoprolol. She reported no chest pressure or discomfort. She states her breathing is much better this morning. No significant wheezing. Occasionally has a cough. Medications: Reviewed: Yes Vitals/I&O/Wt Last Vital Signs Temp 97.7 F 12/28/21 11:39 Pulse 75 12/28/21 12:47 Resp 16 12/28/21 12:35 BP 131/69 12/28/21 11:39 Pulse Ox 95 12/28/21 12:35 O2 Del Method 12/28/21 12:35 O2 Flow Rate 2 12/28/21 07:45 12/27/21 12/28/21 12/28/21 22:59 06:59 14:59 Intake Total 610 / 1410 50 / 1460 480 / 480 Balance 610 / 1410 50 / 1460 480 / 480 Weight last 48 hrs Weight 97.522 kg Weight 97.522 kg Physical Exam Narrative: General exam is a female, no distress Neck is supple no lymphadenopathy or thyromegaly Cardiovascular regular rate and rhythm without murmur, heart sounds distant Lungs diminished breath sounds at the bases. No crackles. No wheezes Abdomen is soft nontender positive bowel sounds. No obvious organomegaly Extremities no cyanosis clubbing or edema, cap refill brisk Skin no rash Data : 12/28/21 04:25 12/28/21 04:25 A&P Assessment and plan (1) Community acquired pneumonia: Patient presents with community-acquired pneumonia requiring oxygen, with elevated white blood cell count. No fevers been noted. Bibasilar infiltrate on x-ray. Continue IV antibiotic, Rocephin and azithromycin Oxygen has been weaned off (2) Acute exacerbation of chronic obstructive airways disease: She received IV steroids in the emergency department Continue prednisone 40 mg daily Pulmonary toilet every 4 hours with albuterol and Atrovent Initiate budesonide twice daily. Plan on Advair on discharge (3) Transaminitis: Check hepatitis panel (4) Elevated troponin: Elevated BNP as well but no overt signs of congestive heart failure such as crackles, increased JVP, or peripheral edema. This may be secondary to heart strain from her hypoxia and COPD exacerbation/pneumonia Echocardiogram demonstrated ejection fraction of 30 to 35%. With discovery of new cardiomyopathy, will require further follow-up. (5) Diabetes mellitus type 2 in obese: Continue sliding scale insulin Metformin should be initiated at discharge Consistent carb diet (6) Cardiomyopathy: Echocardiogram demonstrated EF of 30 to 35% ARB increased today Metoprolol added Continue aspirin Secondary to further work-up needed, changed to regular admission, appreciate cardiology consultation. Consideration of angiogram tomorrow. Statin added. LDL was 109 TSH was normal (7) Atrial fibrillation: Patient developed atrial fibrillation with rapid ventricular rate last night, resolved after IV metoprolol given Continue metoprolol orally 25 mg twice daily Plan on full anticoagulation at discharge with Eliquis or Xarelto. (8) Hypomagnesemia: Supplemented last night, normal this morning. Repeat tomorrow. Plan Other medical problems as outlined in past medical history Full code Lovenox for DVT prophylaxis Attestations Medical Necessity Statement*: Needs continued hospital stay for evaluation of new onset atrial fibrillation, new diagnosis of cardiomyopathy. Coding Level of Care Code Acute Maintainability Engineer for [facility] Diagnoses Community acquired pneumonia J18.9 Acute exacerbation of chronic obstructive airways disease J44.1 Transaminitis R74.01 Elevated troponin R77.8 Diabetes mellitus type 2 in obese E11.69; E66.9 Cardiomyopathy I42.9 Atrial fibrillation I48.91 Hypomagnesemia E83.42
[2021-12-28 16:42] LABS: Glucose Point of Care 309 mg/dL (70-110)
[2021-12-28] MEDS: metoprolol succinate ER (24 HR) 25 mg Tablet PO (17:32)
--- NOTE | 2021-12-28 19:21 | PC.NURSE ---
Report given to ENRRIQUE Garcia
[2021-12-28 20:45] LABS: Glucose Point of Care 304 mg/dL (70-110)
[2021-12-28] MEDS: atorvastatin 40 mg Tablet 20 MG PO (20:55)
[2021-12-29] VITALS (33 sets, daily range): BP systolic 118–159; BP diastolic 55–94; PULSE 64–87; RESP 12–20; TEMP 36.4–37; O2SAT 88–96
[2021-12-29 03:08] LABS: Basophils # 0.1 10^3/uL (0.0-0.1); Basophils % 0.6 %; Eosinophils # 0.1 10^3/uL (0.0-0.8); Eosinophils % 0.4 %; Hematocrit 36.4 % (37.0-47.0); Hemoglobin 11.7 g/dL (11.5-15.3); Lymphocytes # 2.9 10^3/uL (0.8-4.8); Mean Corpuscular HGB Conc 32.1 g/dL (30.0-36.0); Mean Corpuscular Hemoglobin 30.9 pg (28.0-34.0); Mean Platelet Volume 10.6 fL (7.4-10.4); Monocytes % 8.6 %; Neutrophils # 7.86 10^3/uL (1.8-7.7); Neutrophils % 65.9 %; Nucleated Red Blood Cells % 0 %; Platelet Count 363 10^3/cmm (130-400); Red Blood Count 3.79 10^6/uL (4.1-5.3); Red Cell Distribution Width 13.2 % (12.1-15.1); White Blood Count 11.9 10^3/uL (4.0-10.0)
[2021-12-29 03:23] LABS: Alanine Aminotransferase 29 U/L (0-33); Albumin Level 3.6 g/dL (3.5-5.2); Alkaline Phosphatase 83 U/L (35-105); Anion Gap 12.9 (5-19); Aspartate Amino Transferase 17 U/L (0-32); Blood Urea Nitrogen 15 mg/dL (6-20); Calcium 8.8 mg/dL (8.5-10.5); Carbon Dioxide 26 mmol/L (22-29); Chloride 104 mmol/L (98-107); Globulin 2.6 g/dL (1.3-4.6); Glomerular Filtration Rate 103.8 mL/min (90-130); Glucose 207 mg/dL (65-115); Osmolality Calculated 295 mOsm/kg (285-295); Potassium 3.9 mmol/L (3.5-5.1); Sodium 139 mmol/L (136-145); Total Bilirubin 0.2 mg/dL (0.15-1.2); Total Protein 6.2 g/dL (6.6-8.7)
[2021-12-29] MEDS: ipratropium-albuterol 3 mL Neb INHALATION ×5 (03:34→15:33)
[2021-12-29 06:26] LABS: Glucose Point of Care 164 mg/dL (70-110)
[2021-12-29] MEDS: budesonide 0.5 mg/2 mL Neb INHALATION (08:26)
[2021-12-29] MEDS: predniSONE 20 mg Tablet 40 MG PO (09:53)
[2021-12-29] MEDS: metoprolol succinate ER (24 HR) 25 mg Tablet PO ×2 (09:54→17:33)
[2021-12-29] MEDS: aspirin 325 mg EC Tablet PO (09:54)
[2021-12-29] MEDS: losartan 50 mg Tablet PO (09:54)
[2021-12-29] MEDS: sodium chloride 0.9% 1,000 ML 50 ML IV (09:57)
[2021-12-29 10:58] LABS: Glucose Point of Care 162 mg/dL (70-110)
--- NOTE | 2021-12-29 12:12 | PC.NURSE ---
to cardiac laboratory technologist via w/c at this time
--- NOTE | 2021-12-29 13:03 | W.PM.OPSUD ---
Surgery/Procedure H&P Update DATE OF PROCEDURE: December 29, 2021 DATE H&P PERFORMED: 12/28/21 H&P UPDATE INFORMATION: I have reviewed H&P completed within last 30 days, I have examined patient prior to procedure and No changes to prior documentation PREOP DIAGNOSIS: Newly diagnosed cardiomyopathy PRIMARY INDICATION FOR PROCEDURE: CHF PLANNED PROCEDURE: Operation Date: 12/29/21 12:30 Proposed Procedures p Cardiac Catheterization(Left) - Nargis Munguia MD PATIENT REASSESSED PRIOR TO SEDATION, WITH NO CHANGE NOTED: Yes PHYSICAL EXAM: alert, oriented x 3, clear to auscultation bilaterally and regular rate & rhythm AIRWAY EVAL/ANESTHESIA PLAN: normal airway, ASA III, Monitored Anesthesia, Local Anesthesia and Patient agrees to continue as planned
[2021-12-29] MEDS: sodium chloride 0.9% 1,000 ML 75 ML IV ×2 (13:05→13:38)
[2021-12-29] MEDS: azithromycin 500 MG in sodium chloride 0.9% 250 ML 250 MG IV (13:08)
--- NOTE | 2021-12-29 13:19 | PC.NURSE ---
return from cardiac lab support service tech via w/c at 1305.report received.pt is alert and awake and oriented x 4.denies pain at present.sr on monitor.right wrist with tr band on and inflated.right hand is warm to touch and with brisk capillary refill.palpable radial pulse noted distal to tr band.no hematoma noted.pt instructed in activity restrictions s/p radial artery procedure...and instructed to notify staff for any bleeding,pain,numbness,bruising,or for any concerns at all.pt verb understanding of instructions
[2021-12-29] MEDS: cefTRIAXone 1,000 MG in sodium chloride 0.9% (plus) 50 ML 100 MG IV (13:46)
--- NOTE | 2021-12-29 14:01 | PM.DCS ---
Discharge Providers Date of Admission: 12/27/21 11:03 Date of Discharge: December 29, 2021 Attending Provider at Admission: Chapin Reed MD Attending Provider at Discharge: Chapin Reed MD Diagnoses at Discharge Discharge Diagnosis (1) Cardiomyopathy: Status: Acute (2) Atrial fibrillation: Status: Acute (3) Diabetes mellitus type 2 in obese: Status: Acute (4) Transaminitis: Status: Acute (5) COPD (chronic obstructive pulmonary disease): Status: Acute Qualifiers: COPD type: chronic bronchitis Chronic bronchitis type: simple Qualified Code(s): J41.0 - Simple chronic bronchitis Reason for Visit Reason for Visit: SOB Hospital Course Hospital Course Shyla presented to the hospital with shortness of breath and cough. She had significant wheezing. She was diagnosed initially with pneumonia, COPD exacerbation and received IV steroids and antibiotics. Troponin was noted to be slightly high with no significant trend and BNP was elevated. Echocardiogram demonstrated an EF of 30 to 35%. She received 20 mg of Lasix, and cardiology was consulted. They believed an angiogram was indicated. That night she was found to have intermittent atrial fibrillation. Metoprolol, losartan were also added to her regimen secondary to low ejection fraction, and atrial fibrillation. With these medicines she appeared to stay in sinus rhythm, with improvement in her blood pressure as well which was high on admission. On December 29 she underwent an angiogram, demonstrating no atherosclerotic disease. TSH was also checked during her hospital stay which was normal. On December 29 following the angiogram it was thought she could likely go home and follow-up as an outpatient for her newly diagnosed cardiomyopathy, atrial fibrillation, COPD exacerbation. I discussed in detail her discharge instructions, with her family present, and she was able to ask appropriate questions and agreed with the plan. 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 echo wo/w contrast [id number] Routine Ultrasound 12/27/21 07:34 Completed Pending at discharge Category Date Time Status Hepatitis C RNA Viral Load Qnt Routine Lab 12/27/21 09:35 Received Sputum Culture and Gram Stain Routine Lab 12/27/21 08:46 Uncollected Urine Culture Stat Lab 12/27/21 10:15 Results Radiology Impressions Chest X-Ray 12/27/21 04:38 IMPRESSION: Interstitial prominence with mild emphysematous changes and probable bibasilar pulmonary scarring. However, difficult to exclude bibasilar pneumonia. Laboratory Results WBC 11.9 10^3/uL (4.0-10.0) H 12/29/21 02:11 RBC 3.79 10^6/uL (4.1-5.3) L 12/29/21 02:11 Hgb 11.7 g/dL (11.5-15.3) 12/29/21 02:11 Hct 36.4 % (37.0-47.0) L 12/29/21 02:11 MCV 96.0 fl (81-99) 12/29/21 02:11 MCH 30.9 pg (28.0-34.0) 12/29/21 02:11 MCHC 32.1 g/dL (30.0-36.0) 12/29/21 02:11 RDW 13.2 % (12.1-15.1) 12/29/21 02:11 Plt Count 363 10^3/cmm (130-400) 12/29/21 02:11 MPV 10.6 fL (7.4-10.4) H 12/29/21 02:11 Neut % (Auto) 65.9 % 12/29/21 02:11 Lymph % (Auto) 24.0 % 12/29/21 02:11 Alfalfa % (Auto) 8.6 % 12/29/21 02:11 Eos % (Auto) 0.4 % 12/29/21 02:11 Baso % (Auto) 0.6 % 12/29/21 02:11 Neut # (Auto) 7.86 10^3/uL (1.8-7.7) H 12/29/21 02:11 Lymph # (Auto) 2.9 10^3/uL (0.8-4.8) 12/29/21 02:11 Alfalfa # (Auto) 1.0 10^3/uL (0.2-0.9) H 12/29/21 02:11 Eos # (Auto) 0.1 10^3/uL (0.0-0.8) 12/29/21 02:11 Baso # (Auto) 0.1 10^3/uL (0.0-0.1) 12/29/21 02:11 Nucleated RBC % (auto) 0 % 12/29/21 02:11 Nucleated RBCs # 0.0 /100WBC 12/29/21 02:11 Sodium 139 mmol/L (136-145) 12/29/21 02:11 Potassium 3.9 mmol/L (3.5-5.1) 12/29/21 02:11 Chloride 104 mmol/L (98-107) 12/29/21 02:11 Carbon Dioxide 26 mmol/L (22-29) 12/29/21 02:11 Anion Gap 12.9 (5-19) 12/29/21 02:11 BUN 15 mg/dL (6-20) 12/29/21 02:11 Creatinine 0.6 mg/dL (0.5-0.9) 12/29/21 02:11 GFR Calculation 103.8 mL/min (90-130) 12/29/21 02:11 Glucose 207 mg/dL (65-115) H 12/29/21 02:11 POC Glucose 162 mg/dL (70-110) H 12/29/21 10:55 Calculated Osmolality 295 mOsm/kg (285-295) 12/29/21 02:11 Calcium 8.8 mg/dL (8.5-10.5) 12/29/21 02:11 Magnesium 2.0 mg/dL (1.7-2.3) 12/29/21 02:11 Total Bilirubin 0.2 mg/dL (0.15-1.2) 12/29/21 02:11 AST 17 U/L (0-32) 12/29/21 02:11 ALT 29 U/L (0-33) 12/29/21 02:11 Alkaline Phosphatase 83 U/L (35-105) 12/29/21 02:11 Troponin T Baseline 23 ng/L (0-10) H 12/27/21 04:53 Troponin T 120 Minute 26.61 ng/L (0-10) H 12/27/21 06:41 Delta Troponin T 3.61 ABS# (0-10) 12/27/21 06:41 Troponin T Hi Sens 6Hr 25.35 ng/L (0-10) H 12/27/21 10:55 Troponin T Hi Sens 6Hr Delta 2.35 ng/L (0-12) 12/27/21 10:55 NT-Pro-B Natriuret Pep 955 pg/mL (0-125) H 12/27/21 04:45 Total Protein 6.2 g/dL (6.6-8.7) L 12/29/21 02:11 Albumin 3.6 g/dL (3.5-5.2) 12/29/21 02:11 Globulin 2.6 g/dL (1.3-4.6) 12/29/21 02:11 Triglycerides 83 mg/dL (0-150) 12/28/21 04:25 Cholesterol 207 mg/dL (0-200) H 12/28/21 04:25 LDL Cholesterol, Calc 109 mg/dL (50-129) 12/28/21 04:25 HDL Cholesterol 81 mg/dL (60-100) 12/28/21 04:25 LDL/HDL Ratio 1.35 RATIO (0.00-3.22) 12/28/21 04:25 Cholesterol/HDL Ratio 2.56 mg/dL (0.0-4.40) 12/28/21 04:25 Procalcitonin 0.04 ng/mL (0-0.5) 12/27/21 10:55 TSH 3.88 uIU/mL (0.27-4.20) 12/27/21 04:39 Urine Color Yellow (Yellow) 12/27/21 10:15 Urine Appearance Clear (CLEAR) 12/27/21 10:15 Urine pH 5 (5-7) 12/27/21 10:15 Ur Specific Parish 1.015 (1.005-1.030) 12/27/21 10:15 Urine Protein Neg (Negative) 12/27/21 10:15 Urine Glucose (UA) 4+ (Normal) H 12/27/21 10:15 Urine Ketones 1+ (Negative) H 12/27/21 10:15 Urine Blood Neg (Negative) 12/27/21 10:15 Urine Nitrate Positive (Negative) H 12/27/21 10:15 Urine Bilirubin Neg (Negative) 12/27/21 10:15 Urine Urobilinogen Norm mg/dL (Negative) 12/27/21 10:15 Ur Leukocyte Esterase Negative (Negative) 12/27/21 10:15 Urine RBC None /hpf (0-2) 12/27/21 10:15 Urine WBC None /hpf (0-5) 12/27/21 10:15 Ur Squamous Epith Cells 0-4 /hpf (0-5) H 12/27/21 10:15 Amorphous Sediment Not Reportable 12/27/21 10:15 Urine Bacteria 3+ /hpf (NONE) H 12/27/21 10:15 Coronavirus 229E (PCR) Not detected (NOT DETECT) 12/27/21 04:41 Hepatitis A IgM Ab Non-reactive (Nonreactive) 12/27/21 04:39 Hep Bs Antigen Non-reactive (Nonreactive) 12/27/21 04:39 Hep B Core IgM Ab Reactive (Nonreactive) H 12/27/21 04:39 Hepatitis C Antibody Reactive (Nonreactive) H 12/27/21 04:39 SARS-CoV-2 (PCR) Not detected (NOT DETECT) 12/27/21 04:41 Vitals Last Vital Signs Temp 97.8 F 12/29/21 11:40 Pulse 81 12/29/21 13:30 Resp 18 12/29/21 13:30 BP 152/94 12/29/21 13:30 Pulse Ox 90 12/29/21 12:00 O2 Del Method 12/29/21 11:40 O2 Flow Rate 2 12/28/21 07:45 Discharge Plan Discharge Patient Disposition: Home Condition: Stable Prescriptions: New prednisone 20 mg Tablet 40 mg PO DAILY Qty: 8 0RF Eliquis 5 mg tablet 5 mg PO BID Qty: 60 0RF furosemide [Lasix] 20 mg tablet 20 mg PO DAILY Qty: 30 0RF metformin 500 mg tablet,ER angelica.retention 24 hr 500 mg PO DAILY Qty: 30 0RF Rx Instructions: Don not start until 01/01 metoprolol succinate 50 mg tablet extended release 24 hr 50 mg PO DAILY Qty: 30 0RF losartan 50 mg Tablet 50 mg PO DAILY Qty: 30 0RF fluticasone propion-salmeterol [Advair Diskus] 500-50 mcg/dose blister with device 1 inh inhalation BID Qty: 60 0RF cefdinir 300 mg capsule 300 mg PO BID 5 Days Qty: 10 0RF Continued ipratropium-albuterol 0.5 mg-3 mg(2.5 mg base)/3 mL solution for nebulization 3 ml inhalation QID PRN (Reason: Shortness Of Breath) albuterol sulfate 90 mcg/actuation Hfa Aerosol Inhaler 2 puff INHALATION QID PRN (Reason: Shortness Of Breath Or Wheezing) zinc acetate 50 mg (zinc) Capsule 50 mg PO DAILY Vitamin B-12 100 mcg Tablet 100 mcg PO DAILY Vitamin D2 10 mcg (400 unit) Tablet 10 mcg PO DAILY Mucinex 600 mg Tablet Extended Release 12hr 600 mg PO Q12H PRN (Reason: Congestion) Quercetin Complex 500-250-33 mg Capsule 1 cap PO DAILY Discontinued ibuprofen 200 mg Tablet 200 mg PO Q6H PRN (Reason: Pain) Discharge Orders: Discharge Order (Routine); Ordered 12/29/21 Ordered By: Chapin Reed Referrals: Fadumo Borja DO [Physician] - 01/04/22 9:00 am (Follow-up recent hospitalization with COPD, pending hepatitis HCVRNA) Nargis Munguia MD [Physician] - 4-7 days (Nurse practitioner next week for follow-up after angiogram, Dr. Munguia following) Discharge Diet: Diabetic Patient Instructions: Angiogram (DC), Opioid Safety Activity Restrictions/Additional Instructions: Take all medicine as prescribed Avoid exposure to cigarette smoke Lifting restrictions per cardiology Do not start metformin until January 01 Cardiology will decide regarding need for LifeVest. Please consult with prior to discharging the patient Do not discharge patient until she has passed through protocol monitoring for hematoma right radial approach with band removal Patient's Health Concerns: New onset cardiomyopathy Assessment: Ejection fraction 30 to 35%, angiogram negative for atherosclerotic disease Plan of Treatment: Medically treat Goals: Less shortness of breath, no recurrent hospitalizations Discharge Attestations Time Spent in Discharge Care*: greater than 30 min Quality Metrics Clinical Quality Measures [ No reported AMI, CVA or VTE this stay] Coding Level of Care Code Acute g FW DC note Diagnoses Cardiomyopathy I42.9 Atrial fibrillation I48.91 Diabetes mellitus type 2 in obese E11.69; E66.9 Transaminitis R74.01 COPD (chronic obstructive pulmonary disease) J41.0 COPD type: chronic bronchitis Chronic bronchitis type: simple
--- NOTE | 2021-12-29 16:38 | XACV_ITS ---
Exam Room: 2 Ht: 152 cm Wt: 96 kg BSA: 2.07 m2 Gender: Female : 1965 Any Known Allergies: No known allergies Exam Priority: Routine Procedure(s): Procedure Description: Diagnostic procedure Procedure Description: Left Heart Catheterization Procedure Description: Coronary Angiography Diagnostic Cath Status: Elective Diagnostic Findings * No disease noted in the Left Main, Left Anterior Descending, Right, or Circumflex coronary arteries. * Coronary angiography shows right dominance. Conclusions 1. No disease noted in the Left Main, Left Anterior Descending, Right, or Circumflex coronary arteries. Recommendations * Continue current medical management and risk factor modification. LV EDP: 22 mmHg Left Ventriculography Findings: * Left Ventriculogram not performed to minimize contrast use. Pressures Phase:Rest AO : 99 / 72 ( 86 ) @ 1:35:00 PM 102 / 81 ( 93 ) @ 1:46:00 PM 116 / 63 ( 85 ) @ 1:51:00 PM 118 / 57 ( 86 ) @ 1:51:00 PM LV : 127 / -1 / 22 @ 1:51:00 PM 128 / 0 / 23 @ 1:51:00 PM Valves Phase:DefaultPhase AV : 12.0 @ 12:59:26 PM AV Mean Gradient: 11.0 @ 12:59:26 PM Clinical Evaluation EBL: 5mL-10mL Procedural Details Procedure Consent Obtained. Pre-Procedure Time Out. Identified patient by full name and date of as verbalized by the patient/guarantor. Does the consent match the physician's order: Yes. Accurate & Complete Informed Consent: Yes. Inpatient/Outpatient History & Physical on Chart: Yes. If H&P is completed, is and addenduem needed: No. Visualize and Verify Site with Patient/Guarantor: N/A. Relevant Radiology Images available: Yes. The risks, benefits, and alternatives of sedation and/or procedure were discussed by physician. The patient agrees to continue. Procedure started. [facility] Clinical Fraility Score: 3: Managing Well. 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 Chest Pain Symptom Assessment: Atypical Angina. Cardiovascular Instability: No. Correct patient, site and procedure confirmed by cath team. PERRLA. Strong, equal hand home extension agent bilaterally. Lungs clear x 5 lobes. IV Site on Arrival: 20 gauge in the right forearm. IV Fluids: 0.9% NaCl at KVO. 0. mL infused prior to cathode builder. Pre Procedural Pulses: bilateral radial was 3+. Oxygen started at 2liters/min via nasal canula. right groin was prepped with chloroprep then draped in the usual sterile fashion. right radial was prepped with chloroprep then draped in the usual sterile fashion. Physician notified. Baseline sample Acquired. HR: 72 BPM. Patient's family unavailable. Equipment: 6F - Radial. Cardiac Cath Pack. ACIST Manifold Kit Model BT 2000. Heparinized Saline (2 units/mL), 1000 mL bag. Physician arrived. Physician scrubbed in. Immediate Pre-Procedure Time Out. Correct Patient: Yes; Correct Procedure: Yes; Correct Site: Yes; Correct Patient Position: Yes; Correct Supplies: Yes; Dried Flammable Prep: Yes; Blood Products Available: N/A;. Lidocaine 1% infiltrated to the right radial. Arterial access obtained. A 5 azeri TIG catheter in over the exchange wire. Multiple views taken of left coronary artery. Catheter redirected to the RCA, unable to cannulate. Catheter removed over the exchange wire. A 5 azeri JR4 catheter in over the exchange wire. Multiple views taken of right coronary artery. Catheter redirected to the LV. EDP Sample taken: LV 127/-2,22; HR: 75 BPM; SpO2: 93%. Pullback taken: LV 128/-1,23; AO 116/63(85); Mean: 11mmHg, Peak to Peak: 12mmHg, SEP: 19sec/min; HR: 73 BPM; SpO2: 94%. Catheter removed over the exchange wire. Dr Munguia scrubbed out. A TR Band was successful obtaining hemostatsis at the Right Radial artery insertion site. TR band placed. Hemostasis obtained. Post Procedure: Pulses reassessed and unchanged. PERRLA. Strong, equal hand home extension agent bilaterally. No VTE prophylaxis required. Medication's Wasted: Lidocaine 1% = 5 mL. Medication's Wasted: Nitro = 49.8 mg. Medication's Wasted: Heparin = 1000 units. Medication's Wasted: Fentanyl = 25 mcg. Total IV fluids: 40 mL. Post-op diagnosis: normal coronaries. Complications: none. Estimated blood loss: 5mL-10mL. Responsiveness - Normal response to verbal stimuli; alert and oriented, PERRLA. Airway - Unaffected, no intervention required; spontaneous ventilation. Circulation: W/N/L, pulses unchanged. Nausea/Vomiting: No. Procedure completed. Patient transferred by wheelchair to [facility]. Vital chart was stopped. Access Site Site: Right Radial artery Sheath Size: 6 Fr Hemostasis Method: TR Band Hemostasis Success: Successful Procedure Medications Start: 12:29 PM Stop: 12:29 PM Medication: Versed Amount: 1 mg Route: I.V. Start: 12:30 PM Stop: 12:30 PM Medication: Fentanyl Amount: 25 mcg Route: I.V. Start: 12:31 PM Stop: 12:31 PM Medication: Fentanyl Amount: 25 mcg Route: I.V. Start: 12:32 PM Stop: 12:32 PM Medication: Versed Amount: 1 mg Route: I.V. Start: 12:32 PM Stop: 12:32 PM Medication: Nitrogylcerin Amount: 200 mcg Route: I.A. Start: 12:35 PM Stop: 12:35 PM Medication: Heparin Amount: 5000 units Route: I.V. Start: 12:50 PM Stop: 12:50 PM Medication: Versed Amount: 1 mg Route: I.V. Start: 12:50 PM Stop: 12:50 PM Medication: Fentanyl Amount: 25 mcg Route: I.V. Start: 12:50 PM Stop: 12:50 PM Medication: Versed Amount: 1 mg Route: I.V. I, the attending physician, have reviewed and verified all procedure medications. Yes, all medications given per verbal order History/Risk Factors Hypertension: Yes Peripheral Arterial Disease (PAD): No Myocardial Infarction (DC): No Obesity: Yes Renal Disease: No Tobacco Use: Former Prior Interventions PCI: No CABG: No Valve Surgery: No Report Signatures Finalized by Nargis Munguia MD on 12/29/2021 01:11 PM
[2021-12-29 17:10] LABS: Glucose Point of Care 365 mg/dL (70-110)
--- NOTE | 2021-12-29 17:10 | P.PN_ITS ---
Subjective Subjective: Patient was seen before and after [facility] today. She feels well and denies any CP. Intermittent cough+ Medications: Reviewed: Yes Vitals/I&O/Wt Last Vital Signs Temp 98.6 F 12/29/21 15:44 Pulse 84 12/29/21 15:44 Resp 18 12/29/21 15:44 BP 141/84 12/29/21 15:44 Pulse Ox 93 12/29/21 15:44 O2 Del Method 12/29/21 15:44 O2 Flow Rate 2 12/28/21 07:45 12/29/21 12/29/21 12/29/21 06:59 14:59 22:59 Intake Total 0 / 900 1434.167 / 1434.167 Balance 0 / 900 1434.167 / 1434.167 Weight last 48 hrs Weight 211 lb 11.2 oz Physical Exam Narrative: GENERAL: obese woman sitting in bed in no acute distress HEENT: Extraocular movement intact. No pallor or icterus. NECK: central trachea, No JVD, No carotid bruit. CARDIOVASCULAR SYSTEM: S1-S2 regular. No S3 or S4 present. No murmur rubs or gallops. RESPIRATORY SYSTEM: Chest clear to auscultation. No wheezes rhonchi or rubs heard. No use of accessory muscles. ABDOMEN: Soft, nontender and nondistended. Normal bowel sounds present. EXTREMITIES: No cyanosis or edema. No signs of chronic venous insufficiency. 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 No focal neurological deficits. SKIN: Normal turgor and temperature. PSYCH: Normal insight and judgment. Data : 12/29/21 02:11 12/29/21 02:11 Micro: Microbiology 12/27/21 10:15 Urine Culture - Preliminary Urine,Clean Catch A&P Assessment and plan (1) Cardiomyopathy: HFrEF (LVEF=30-35%) EKG with sinus rhythm, possible left atrial enlargement. non specific T wave abnormality. -troponins flat -started on losratan and metoprolol. -Normal coronaries on [facility]. LVEDP=22 mm Hg. -Dilated non ischemic cardiomyopathy, NYHA class III symptoms -will start on low dose lasix on discharge -will set her up for life vest. Patient is agreeable for the same. -May be discharged home later today -f/u with Kathy in 1-2 weeks and with in 6-8 weeks. (2) Atrial fibrillation: [id number]= 3/9, 1 for HTN, 1 for female sex and 1 for DM-2. -continue metoprolol -start on Eliquis after [facility] on discharge. (3) Diabetes mellitus type 2 in obese: (4) Transaminitis: Hep B Core IgM Ab reactive, Hep B surface antigen negative; Hep C antibody reactive HCV RNA pending (5) COPD (chronic obstructive pulmonary disease): Qualifiers: COPD type: chronic bronchitis Chronic bronchitis type: simple Qualified Code(s): J41.0 - Simple chronic bronchitis Plan Former smoker Obesity Attestations Medical Necessity Statement*: May be discharged later today Time Spent in Patient Care: 16 - 35 minutes Coding Level of Care Code Acute Ultrasound Spec for [facility] Fwd Diagnoses Cardiomyopathy I42.9 Atrial fibrillation I48.91 Diabetes mellitus type 2 in obese E11.69; E66.9 Transaminitis R74.01 COPD (chronic obstructive pulmonary disease) J41.0 COPD type: chronic bronchitis Chronic bronchitis type: simple
[2021-12-29] MEDS: insulin lispro 100 unit/1 mL SUBCUT (17:32)
--- NOTE | 2021-12-29 18:31 | PC.NURSE ---
tr band finally removed at 1730.no hematoma formation noted.right hand remains warm to touch and with brisk capillary refill.palpable radial pulse noted.site dressed with 2x2 gauze and secured with biocclusive drsg.pt instructed in activity restrictions s/p tr band removal.instructed to notify staff for any bleeding,bruising,pain,numbness...or for any concerns at all.pt verb understanding of instructions
--- NOTE | 2021-12-29 18:34 | PC.NURSE ---
discharge instructions given and explained.meds provided by meds to beds program from [facility].pt verb understanding of instructions .discharged via w/c to exit.daughter to drive pt home.
[2021-12-29 22:43] LABS: HEP C RNA Viral Load Quant <1.18 NOT DETECTED Log IU/mL (NOT DETECTED); HEP C RNA Viral Load Quant <15 NOT DETECTED IU/mL (NOT DETECTED)
== END 2021-12-29 18:37 | disposition home or self-care (01) ==
LOC: ER 07:34 → MEDSURG 11:05
PROVIDERS: Emergency Medicine; Internal Medicine; Internal Medicine Cardiovascular Disease; Admitting Provider Internal Medicine; Emergency Provider Family Medicine; Visit Provider Internal Medicine
DX: I42.0 Dilated cardiomyopathy (principal); I48.91 Unspecified atrial fibrillation; E11.69 Type 2 diabetes mellitus with other specified complication; E66.9 Obesity, unspecified; Z68.41 Body mass index [BMI] 40.0-44.9, adult; R74.01 Elevation of levels of liver transaminase levels; J41.0 Simple chronic bronchitis; I10 Essential (primary) hypertension; E83.42 Hypomagnesemia; J44.1 Chronic obstructive pulmonary disease with (acute) exacerbation; Z87.891 Personal history of nicotine dependence; F32.A Depression, unspecified
CPT/HCPCS: 36415; 36416; 71045; 80053; 80061; 80074; 81001; 82962; 83735; 83880; 84145; 84443; 84484; 85025; 87086; 87522; 87635; 93005; 93458; 94640; 96360; 96365; 96367; 96372; 96375; 96376; 99152; 99153; 99285; C1769; C1887; C1894; C8929; G0378; J0456; J0696; J1644; J1650; J1815; J1940; J1956; J2250; J2930; J3010; J3475; J3490; J7030; J7050; J7512; J7626; Q9956; Q9967

== ENCOUNTER → 2022-01-03 14:26 | Outpatient (BNVA) | payer SELFPAY | PROVIDERS: PCP Family Medicine; Visit Provider Nurse Practitioner Family | DX: I42.0 Dilated cardiomyopathy (principal); I48.91 Unspecified atrial fibrillation | CPT/HCPCS: 80048 ==

== ENCOUNTER → 2022-02-09 12:27 | Outpatient (BNVA) | payer SELFPAY | PROVIDERS: PCP Family Medicine; Visit Provider Family Medicine | DX: R74.01 Elevation of levels of liver transaminase levels (principal) | CPT/HCPCS: 80053 ==

== ENCOUNTER → 2022-04-06 08:55 | Outpatient (BNVA) | payer SELFPAY | PROVIDERS: PCP Family Medicine; Visit Provider Family Medicine | DX: E11.69 Type 2 diabetes mellitus with other specified complication (principal); E66.9 Obesity, unspecified | CPT/HCPCS: 80053; 83036 ==

== ENCOUNTER → 2023-02-08 10:07 | Outpatient (BNVA) | payer BC, SELFPAY | PROVIDERS: PCP Family Medicine; Visit Provider Family Medicine | DX: E11.69 Type 2 diabetes mellitus with other specified complication (principal); E66.9 Obesity, unspecified; Z13.6 Encounter for screening for cardiovascular disorders | CPT/HCPCS: 80053; 80061; 82043; 83036; 85025 ==

== ENCOUNTER → 2023-04-05 09:04 | Outpatient (BNVA) | payer BC, SELFPAY | PROVIDERS: PCP Family Medicine; Visit Provider Family Medicine Adult Medicine | DX: R68.83 Chills (without fever) (principal) | CPT/HCPCS: 81000 ==

== ENCOUNTER 2023-05-06 20:00 | Outpatient (CLI) | payer BC, SELFPAY | END 2023-05-06 20:01 | disposition home or self-care (01) | LOC: SLEEP 05-07 05:49 | PROVIDERS: PCP Family Medicine; Visit Provider Family Medicine | DX: G47.33 Obstructive sleep apnea (adult) (pediatric) (principal) | CPT/HCPCS: 95810 ==

== ENCOUNTER → 2023-05-30 08:33 | Outpatient (BNVA) | payer BC, SELFPAY | PROVIDERS: PCP Family Medicine; Visit Provider Family Medicine | DX: E11.69 Type 2 diabetes mellitus with other specified complication (principal); E66.9 Obesity, unspecified | CPT/HCPCS: 80053; 80061; 83036 ==

== ENCOUNTER 2023-06-07 14:22 | Outpatient (CLI) | payer BC, SELFPAY ==
--- NOTE | 2023-06-07 15:00 | MM_ITS ---
WS: [id number] BILATERAL 3D TOMOSYNTHESIS DIGITAL SCREENING MAMMOGRAPHY WITH CAD CLINICAL INFORMATION: screening HISTORY: Screening mammogram. No current complaints. COMPARISON: 2019 TECHNIQUE: Bilateral CC and MLO views. FINDINGS: Scattered fibroglandular densities bilaterally. Increasing nodular slightly spiculated density upper outer LEFT breast anteriorly. Recommend further evaluation with spot compression views and ultrasound if persistent. Benign eggshell calcifications throughout the anterior RIGHT breast similar to previous. IMPRESSION: MM/[place] [id number] BI-RADS: 0-Incomplete: Need additional imaging evaluation FOLLOW UP: Need Additional Imaging Recommend LEFT breast diagnostic mammography and ultrasound in further evaluati on.
== END 2023-06-07 14:23 | disposition home or self-care (01) ==
LOC: RAD 14:22
PROVIDERS: PCP Family Medicine; Visit Provider Family Medicine
DX: Z12.31 Encounter for screening mammogram for malignant neoplasm of breast (principal); R92.323 Mammographic fibroglandular density, bilateral breasts
CPT/HCPCS: 77063; 77067

== ENCOUNTER 2023-06-27 14:44 | Outpatient (CLI) | payer BC, SELFPAY ==
--- NOTE | 2023-06-27 15:00 | MM_ITS ---
WS: [id number] LEFT 3D TOMOSYNTHESIS DIGITAL MAMMOGRAPHY WITH CAD CLINICAL INFORMATION: Abnormal Screening mammogram HISTORY: Additional views COMPARISON: 06/07/2023 TECHNIQUE: 3 views of the left breast were obtained. FINDINGS: Scattered fibroglandular densities of the left breast. Incidental punctate and lucent centered calcif ications. Previously described ovoid slightly spiculated density upper outer LEFT breast anteriorly p artially compresses out on the diagnostic views. Ultrasound is pending. ULTRASOUND BREAST LEFT TECHNIQUE: Ultrasound left breast focused area of concern. CLINICAL INFORMATION: Abnormal Screening mammogram FINDINGS: Ultrasound upper outer quadrant LEFT breast. Normal underlying parenchymal tissue. No cystic or solid lesions. No suspicious lesions to target for biopsy. IMPRESSION: MM/[place] [id number] BI-RADS: 2-Benign FOLLOW UP: 1 Year Follow-up Recommend return to annual screening mammography.
--- NOTE | 2023-06-27 15:05 | US_ITS ---
WS: [id number] LEFT 3D TOMOSYNTHESIS DIGITAL MAMMOGRAPHY WITH CAD CLINICAL INFORMATION: Abnormal Screening mammogram HISTORY: Additional views COMPARISON: 06/07/2023 TECHNIQUE: 3 views of the left breast were obtained. FINDINGS: Scattered fibroglandular densities of the left breast. Incidental punctate and lucent centered calcif ications. Previously described ovoid slightly spiculated density upper outer LEFT breast anteriorly p artially compresses out on the diagnostic views. Ultrasound is pending. ULTRASOUND BREAST LEFT TECHNIQUE: Ultrasound left breast focused area of concern. CLINICAL INFORMATION: Abnormal Screening mammogram FINDINGS: Ultrasound upper outer quadrant LEFT breast. Normal underlying parenchymal tissue. No cystic or solid lesions. No suspicious lesions to target for biopsy. IMPRESSION: US/US breast LT limited* [id number] BI-RADS: 2-Benign FOLLOW UP: 1 Year Follow-up Recommend return to annual screening mammography.
== END 2023-06-27 14:45 | disposition home or self-care (01) ==
LOC: RAD 14:48
PROVIDERS: PCP Family Medicine; Visit Provider Family Medicine
DX: R92.8 Other abnormal and inconclusive findings on diagnostic imaging of breast (principal)
CPT/HCPCS: 76642; 77061; G0279

== ENCOUNTER 2023-12-31 09:05 | Outpatient (CLI) | payer BC, SELFPAY ==
--- NOTE | 2023-12-31 09:10 | CT_ITS ---
WS: [id number] LDCT LUNG CANCER SCREENING HISTORY: HX OF TOBACCO USE TECHNIQUE: Axial imaging performed from the apices to 1 cm below the costophrenic angles. Coronal and sagittal reformats are submitted with axial MIP series. All CT scans at [facility] use at least one of these dose optimization techniques: automated exposure control; mA and/or kV adjustment per patient size (includes targeted exams where dose is matched to clinical indication); or iterativ e reconstruction. DLP: 119.70 mGy.cm DIvol: Mean CTDIvol: 2.90 (mGy) COMPARISON: Chest radiograph 12/27/2021 Diagnostic quality: Satisfactory Lungs: Spiculated mass with a few scattered central cavitary components in the LEFT lower lobe. Krystal s slightly spiculated in shape measuring 2.2 x 1.8 x 1.1 cm partial filling of the LEFT lower lobe br onchus resulting in partial atelectasis. No additional mass or nodule. Chronic emphysema. Heart: Normal size heart with no pericardial effusion.. Other findings: Atherosclerosis aorta. Normal size pulmonary artery. No mediastinal or hilar adenopat hy identified. Hilar regions are poorly visualized without IV contrast. Small hiatal hernia. Diffuse hepatic steatosis. Liver is also enlarged. LEFT adrenal gland is mildly hyperplastic. No destructive bone lesions. CT/CT lung screening [id number] IMPRESSION: LUNG-RADS: 4A-Probably Suspicious FOLLOW UP: PET/CT recommended OTHER FINDINGS (S MODIFIER): None.
== END 2023-12-31 09:06 | disposition home or self-care (01) ==
LOC: RAD 09:06
PROVIDERS: PCP Nurse Practitioner Family; Visit Provider Nurse Practitioner Family
DX: Z13.820 Encounter for screening for osteoporosis (principal); R91.1 Solitary pulmonary nodule; J43.9 Emphysema, unspecified; K76.0 Fatty (change of) liver, not elsewhere classified; R16.0 Hepatomegaly, not elsewhere classified
CPT/HCPCS: 71271

== ENCOUNTER 2024-01-24 07:51 | Outpatient (CLI) | payer BC, SELFPAY ==
--- NOTE | 2024-01-24 08:03 | PETR_ITS ---
PROCEDURE INFORMATION: Exam: PET/CT Whole Body Exam date and time: 01/24/2024 8:54 AM Age: 58 years old Clinical indication: Abnormal findings; Lung mass LABS AND CLINICAL REPORTS: Glucose: 134 mg/dl Treatment strategy for malignancy (PET staging): Initial Staging (PI) TECHNIQUE: Imaging protocol: Following at least four-hour fasting and following the injection of radiopharmaceutical, low dose CT images were obtained. Then, PET images were obtained. Attenuation corrected images were constructed using the CT scan. Fused images of PET and CT were reviewed. The standardized uptake values (SUV) reported below are maximum values within a region of interest, expressed in gm/ml. Exam includes the whole body. SUV normalization method: BodyWeight Radiopharmaceutical: 11.07 mCi F-18 FDG (Fluorodeoxyglucose), IV. Time of imaging post radiopharmaceutical administration: 48 minutes Injection site: left hand COMPARISON: 1. CR (CHEST, ) 12/27/2021 4:[address] lung screening [id number] 12/31/2023 9:26 AM FINDINGS: Brain: Visualized brain has normal physiologic uptake. Pharynx: No abnormal uptake. Larynx: No abnormal uptake. Lungs, pleura and trachea: Upper lung predominant emphysematous change. Approximately 2.1 x 1.8 cm medial left lower lobe opacity on axial image 129 shows very low-level FDG uptake with SUV max 2.1 and appears more bandlike on coronal and sagittal images, continuous with the bandlike opacity extending more superiorly. Overall thinner compared to 12/31/2023. Allowing for differences in technique, similar appearance to December 2021. Heart: Normal physiologic uptake. Coronary arteries: Moderate coronary artery calcification. Mediastinal space: No abnormal uptake. Liver: No abnormal uptake. Diffuse hypoattenuation compatible with steatosis. Gallbladder and biliary ducts: No abnormal uptake. Pancreas: No abnormal uptake. Spleen: No abnormal uptake. Adrenal glands: No abnormal uptake. Kidneys and ureters: Normal physiologic uptake. Stomach and bowel: No abnormal uptake. Colonic diverticulosis without findings of diverticulitis. Vasculature: No abnormal uptake. Mild systemic atherosclerotic calcification without aortic aneurysm. Lymph nodes: No abnormal uptake. No lymphadenopathy in the head, neck, chest, abdomen, pelvis, and extremities. Skeleton: Mild degenerative changes along the spine. Linear low-level FDG uptake along the left anterior rotator cuff musculature is likely inflammatory or strain. Soft tissues: No abnormal uptake in the visualized head, neck, chest, abdomen, pelvis, and extremities. Tiny fat containing umbilical hernia. METRICS: Mediastinal blood pool: SUV mean 2.9 Liver uptake: SUV mean 3.2 PET/PET WB melanoma INITIAL [id number] IMPRESSION: 1. Left lower lobe opacity of concern shows very low level FDG uptake and thinner more bandlike morphology today, favoring benign atelectasis or scar. 2. Hepatic steatosis. 3. Additional chronic and incidental findings as above, to include atherosclerosis and colonic diverticulosis.
== END 2024-01-24 07:52 | disposition home or self-care (01) ==
PROVIDERS: PCP Nurse Practitioner Family; Visit Provider Nurse Practitioner Family
DX: R91.8 Other nonspecific abnormal finding of lung field (principal); Z87.891 Personal history of nicotine dependence; K76.0 Fatty (change of) liver, not elsewhere classified; K57.90 Diverticulosis of intestine, part unspecified, without perforation or abscess without bleeding; I25.84 Coronary atherosclerosis due to calcified coronary lesion
CPT/HCPCS: 78816; A9552

== ENCOUNTER 2024-05-11 08:35 | Outpatient (CLI) | payer BC, SELFPAY ==
--- NOTE | 2024-05-11 08:43 | CT_ITS ---
WS: [id number] CT CHEST TECHNIQUE: Noncontrast CT of the chest with coronal and sagittal reformatted images. CLINICAL INFORMATION: SOLITARY PULMONARY NODULE COMPARISON: CT 2023 DLP: 576.[address] scans at [facility] use at least one of these dose optimization techniques: automated exposure control; mA and/or kV adjustment per patient size (includes targeted exams where dose is matched to clinical indication); or iterative reconstruction. FINDINGS: Wedge-shaped area of subsegmental atelectasis LEFT lower lobe is unchanged since 12/31/2023 and 01/25/2024. Mild chronic emphysematous. No new suspicious pulmonary parenchymal opacities Aortic calcification. Coronary calcification. No mediastinal or hilar lymphadenopathy. No axillary lymphadenopathy. Hepatomegaly. Hepatic steatosis. Tiny esophageal hiatal hernia. Tiny LEFT adrenal adenoma. Mild thoracic kyphosis. Mild spondylitic changes thoracic spine. CT/CT chest wo con [id number] IMPRESSION: 1. Small wedge-shaped area of subsegmental atelectasis LEFT lower lobe is unch anged in appearance. Recommend continued surveillance. 2. Mild chronic emphysematous changes. 3. No new suspicious pulmonary opacities. 4. Aortic calcification. Coronary calcification. 5. Hepatomegaly with fatty steatosis.
== END 2024-05-11 08:36 | disposition home or self-care (01) ==
LOC: RAD 08:37
PROVIDERS: PCP Nurse Practitioner Family; Visit Provider Internal Medicine
DX: R91.1 Solitary pulmonary nodule (principal); J98.11 Atelectasis; J43.8 Other emphysema; I70.0 Atherosclerosis of aorta; I25.10 Atherosclerotic heart disease of native coronary artery without angina pectoris; R16.0 Hepatomegaly, not elsewhere classified; K76.0 Fatty (change of) liver, not elsewhere classified; M40.294 Other kyphosis, thoracic region; M47.894 Other spondylosis, thoracic region
CPT/HCPCS: 71250